=== PATIENT | female | born 1980 | race Caucasian/White ===

== ENCOUNTER 2017-10-01 20:38 | Emergency (ER) | payer SELFPAY ==
[~2017-10-01] VITALS: Ht 162.6 cm; Wt 134.3 kg
[~2017-10-01 20:38] MED LIST: ACHD5005 PO; ALBU8.5H2 PO; ALPR.5T PO; AMOX-97 PO; AMOX500C2 PO; AZIT250T12 PO; BIRTH CONTROL; CEPH500C PO; CYCL10TA9 PO; DCS100C PO; DOXY100C2 PO; DULO30CA3 PO; FERR-57 PO; FERR-84 PO; FLUO20CA25 PO; GFCD10B PO; HYDR-2856 PO; HYDR-34 PO; HYDR-3583 PO; HYDR25CA5 PO; IBP600T1 PO; IBP800T PO; KETO75CA PO; LA/L175C PO; LOSA25TA21 PO; MEDR5TAB4 PO; META800T5 PO; METF-380 PO; METF500T4 PO; METF500T8; METR500T PO; MIRTAZAPINE; NAPR-243 PO; NITR-65 PO; ONDA8TAB9 PO; ONDAN4ODT PO; PHEN200T27 PO; PRD20T PO; PREG75CA PO; PRM25T PO; PRM5C60 TOP; PROAIR; PROM25SU10 PR; SMT80CT PO; SPECTAZOLE; VISTARIL; [UNRECOGNIZED DRUG - CODE] PO; [UNRECOGNIZED DRUG - CODE] PO; yazmin
[2017-10-01] MEDS ORDERED: PROMETHAZINE/ CODEINE SYRUP 5 ML UDC PO ONE (22:00)
[2017-10-01] MEDS ORDERED: AZIT250T PO (22:05)
[2017-10-01] MEDS ORDERED: CODE118S2 PO (22:05)
--- NOTE | 2017-10-01 22:06 | ED EENT ---
History of Present Illness General Chief Complaint: Cough/Cold/Flu Symptoms Stated Complaint: FEVER,COUGH Nursing Triage Note: PT TO ED 5 W/ C/O COUGH, FEVER. PT REPORTS RECENTLY DX W/ BRONCHITIS ET LARYNGITIS. REPORTS SHE WAS FEELING BETTER BUT NOW SYMPTOMS ARE WORSE. Source: patient Exam Limitations: no limitations History of Present Illness Time seen by provider: 22:02 Initial Comments to ER with a productive cough and fever up to 101. She was diagnosed with bronchitis and laryngitis about 2 weeks ago that seemed to improve but about 3 days ago her symptoms worsened. Timing/Duration: this morning Severity: moderate Associated Symptoms: cough, nasal congestion/drainage Allergies and Home Medications Allergies Coded Allergies: Sulfa (Sulfonamide Antibiotics) (Unverified Allergy, Mild, 06/30/09) buspirone HCl (Verified Allergy, Unknown, 02/26/16) mirtazapine (Verified Allergy, Unknown, 02/26/16) naproxen (Verified Allergy, Unknown, 08/20/16) Home Medications Duloxetine HCl 30 Mg Capsule.dr, 30 MG PO DAILY, (Reported) Ferrous Sulfate 325 Mg Tablet, 325 MG PO DAILY, (Reported) Losartan Potassium 25 Mg Tablet, 25 MG PO DAILY, (Reported) Metformin HCl 500 Mg Tab.er.24h, #60 (Reported) Metformin HCl Unknown Strength Tablet, 500 MG PO BID, (Reported) Pregabalin 75 Mg Capsule, 225 MG PO BID, (Reported) Review of Systems Constitutional: see HPI, chills Eyes: No Symptoms Reported Ears: No Symptoms Reported Nose: no symptoms reported Mouth: no symptoms reported Throat: no symptoms reported Respiratory: see HPI, cough Cardiovascular: no symptoms reported Musculoskeletal: no symptoms reported Skin: no symptoms reported Neurological: No Symptoms Reported Hematologic/Lymphatic: No Symptoms Reported Past Shibkjr-Bfjfiz-Rgsdxu Hx Patient Social History Alcohol Use: Denies Use Recreational Drug Use: No Smoking Status: Current Everyday Smoker Type Used: Cigarettes Former Smoker, Quit: Aug 21, 2016 Recent Foreign Travel: No Contact w/Someone Who Travel: No Recent Infectious Disease Expo: No Recent Hopitalizations: No Physical Abuse: No Sexual Abuse: No Mistreated: No Fear: No Immunizations Up To Date Tetanus Booster (TDap): Unknown Date of Pneumonia Vaccine: May 26, 2013 Seasonal Allergies Seasonal Allergies: Yes Surgeries History of Surgeries: Yes (D&C x3) Surgeries: Hysterectomy Respiratory History of Respiratory Disorde: Yes Respiratory Disorders: Asthma Cardiovascular History of Cardiac Disorders: Yes Cardiac Disorders: Hypertension Neurological History of Neurological Disord: No Reproductive System Hx Reproductive Disorders: No Sexually Transmitted Disease: No HIV/AIDS: No Female Reproductive Disorders: Menstrual Problems, Ovarian Cyst [employer] History: Hysterectomy Genitourinary History of Genitourinary Disor: No Gastrointestinal History of Gastrointestinal Di: Yes (BLOOD IN STOOLS) Gastrointestinal Disorders: Gastroesophageal Reflux Musculoskeletal History of Musculoskeletal Dis: Yes (UNDIFFERENTIATED CONNECTIVE TISSUE DISEASE ) Musculoskeletal Disorders: Arthritis, Fibromyalgia, Rheumatoid Arthritis Endocrine History of Endocrine Disorders: Yes Endocrine Disorders: Diabetes, Non-Insulin dep HEENT Loss of Vision: Bilateral Hearing Impairment: Deaf Cancer History of Cancer: No Psychosocial History of Psychiatric Problem: Yes Behavioral Health Disorders: Anxiety, PTSD, Bipolar, Depression Suicide Risk Score: 0 Integumentary History of Skin or Integumenta: No Blood Transfusions History of Blood Disorders: No (ANEMIA) Adverse Reaction to a Blood Tr: No (HAS HAD BLOOD WITH NO REACTION) Family Medical History Family Medial History: Alcoholism 03 MOTHER Cancer 09 SISTER (Cervical or ovarian) Cancer of colon Congenital heart disease 03 FATHER Congestive heart failure 03 FATHER Family history: Allergy 03 MOTHER Family history: Arthritis Family history: Asthma 09 BROTHER Family history: Cardiovascular disease Family history: Diabetes mellitus 03 MOTHER Family history: Hypertension 03 MOTHER Family history: Thyroid disorder Heart disease History of - anemia 03 MOTHER History of drug abuse 03 FATHER 03 MOTHER Hypercholesterolemia 03 MOTHER Kidney disease Myocardial infarction Psychotic disorder Seizure disorder Stroke No Family History of: Abdominal aortic aneurysm Dyllan's disease Aphasia Cataract Chest pain Cystic fibrosis Dementia Dysphagia Family history: Alzheimer's disease Family history: Breast disease Family history: Coronary thrombosis Family history: Gastrointestinal disease Family history: Glaucoma Family history: Osteoporosis Headache Hearing loss Hereditary disease History of - respiratory disease Human immunodeficiency virus (HIV) seropositivity Infertile Malignant neoplasm of lung Parkinson's disease Prostate cancer Tuberculosis Visual impairment Physical Exam Vital Signs Vital Sign - Last 12Hours 10/01/17 21:12 Temp 98.0 Pulse 90 Resp 20 B/P (MAP) 141/93 (109) O2 Delivery Room Air General Appearance: WD/WN, no apparent distress Eyes: bilateral eye normal inspection, bilateral eye PERRL, bilateral eye EOMI Ears: bilateral ear auricle normal, bilateral ear canal normal, bilateral ear TM normal Mouth/Throat: normal mouth inspection, pharynx normal Neck: non-tender, full range of motion Cardiovascular: regular rate, rhythm, no murmur Gastrointestinal: normal bowel sounds, non tender Neurologic/Psychiatric: alert, normal mood/affect, oriented x 3 Skin: normal color, warm/dry Progress/Results/Core Measures Results/Orders Micro Results Microbiology 10/01/17 Influenza Types A,B Antigen (FLORA) - Final, Complete My Orders Orders - LIVIA NOVOA APRN Azithromycin Tablet (Zithromax Tablet) (10/02/17 09:00) Promethazine/ Codeine Syrup (Phenergan W (10/01/17 22:00) Vital Signs/I&O Vital Sign - Last 12Hours 10/01/17 21:12 Temp 98.0 Pulse 90 Resp 20 B/P (MAP) 141/93 (109) O2 Delivery Room Air Blood Pressure Mean: 109 Departure Impression Impression: Primary Impression: Upper respiratory infection Disposition: 01 HOME, SELF-CARE Condition: Stable Departure-Patient Inst. Decision time for Depature: 22:04 Referrals: NO,LOCAL PHYSICIAN (PCP/Family) Primary Care Physician Patient Instructions: Cough, Adult (DC) Add. Discharge Instructions: All discharge instructions reviewed with patient and/or family. Voiced understanding. Scripts Promethazine HCl/Codeine (Promethazine-Codeine Syrup) 118 Ml Syrup 5 ML PO Q6H Y for COUGH, #120 ML Prov: LIVIA NOVOA APRN 10/01/17 Azithromycin (Zithromax) 250 Mg Tablet 250 MG PO DAILY, #5 TAB Prov: LIVIA NOVOA APRN 10/01/17 Work/School Note: Work Release Form Date Seen in the Emergency Department: Oct 01, 2017 Return to Work: Oct 03, 2017 LIVIA NOVOA APRN Oct 01, 2017 22:05
[2017-10-01] MEDS ORDERED: AZITHROMYCIN 250 MG TAB (ZITHROMAX) PO ONE (22:12)
[2017-10-01 22:20] VITALS: BP 138/91
[2017-10-02] MEDS ORDERED: AZITHROMYCIN 250 MG TAB (ZITHROMAX) PO SCH (09:00)
== END 2017-10-01 22:20 | disposition home or self-care (01) ==
LOC: EDUNIT# 20:38 → ER 20:40
DX: J06.9 Acute upper respiratory infection, unspecified (principal); J45.909 Unspecified asthma, uncomplicated; I10 Essential (primary) hypertension; K21.9 Gastro-esophageal reflux disease without esophagitis; M06.9 Rheumatoid arthritis, unspecified; E11.9 Type 2 diabetes mellitus without complications; F41.9 Anxiety disorder, unspecified; F31.9 Bipolar disorder, unspecified; F43.10 Post-traumatic stress disorder, unspecified; F17.210 Nicotine dependence, cigarettes, uncomplicated; Z80.0 Family history of malignant neoplasm of digestive organs; Z82.49 Family history of ischemic heart disease and other diseases of the circulatory system; Z90.710 Acquired absence of both cervix and uterus
CPT/HCPCS: 87804; 99283

== ENCOUNTER 2018-03-01 18:38 | Emergency (ER) | payer SELFPAY ==
[~2018-03-01] VITALS: Ht 162.6 cm; Wt 127.0 kg
[~2018-03-01 18:38] MED LIST changes: +AZIT250T PO; +CODE118S2 PO; -METF500T4 PO; +METF500T5 PO
--- OUTSIDE RECORDS SUMMARY | 2018-03-01 18:43 | XMS REPORT | Clinical Summary ---
Author Author [facility] Organization [facility] Address Unknown Phone Unavailable Care Team Providers Care Hand Stapler Name Role Phone Wilner Mendoza MD Unavailable Wilner Mendoza MD Unavailable Sally Arellano MD Unavailable Clement Zafar MD Unavailable No Pcp, Na PCP Unavailable Source Comments Some departments are not documenting in the electronic medical record. If you do not see the information that you expected, contact Release of Information in the Health Information Management department at [phone] for further assistance in locating additional records.[facility] Allergies Active Allergy Reactions Severity Noted Date Comments Buspirone ANXIETY Low 04/05/2015 Naproxen SEE COMMENTS Low 08/06/2016 tongue and lip swelling Mirtazapine MENTAL STATUS CHANGES Medium 04/05/2015 Sulfa (Sulfonamide RASH Medium 04/05/2015 Antibiotics) Current Medications Prescription Sig. Disp. Refills Start End Date Status Date pregabalin (LYRICA) 150 Take 150 mg by mouth Active mg capsule twice daily. losartan (COZAAR) 25 mg Take 25 mg by mouth Active tablet daily. metFORMIN-XR(+) Take 500 mg by mouth Active (GLUCOPHAGE XR) 500 mg twice daily. extended release tablet duloxetine DR (CYMBALTA) Take 30 mg by mouth Active 30 mg capsule daily. indomethacin (INDOCIN) 50 Take 50 mg by mouth twice Active mg capsule daily. Take with food. hydroxychloroquine Take 1 Tab by mouth twice 180 Tab 1 12/07/19 Active (PLAQUENIL) 200 mg tablet daily. Take with food. 17 Active Problems Problem Noted Date Iron deficiency 08/06/2016 Overview: The patient isn't anemic. She is female. But she's had a hysterectomy in 2011. Connective tissue disease, undifferentiated (HCC) 08/06/2016 CHRISTOS positive 06/04/2016 Butterfly rash 06/04/2016 Contact dermatitis 06/04/2016 Obesity 06/04/2016 Drug allergy-intolerance (mirtazapine, sulfonamide antibiotics, buspirone) 06/04/2016 Diabetes (HCC) 06/04/2016 Hypertension 06/04/2016 Insomnia 06/04/2016 Microcytic normochromic anemia 06/04/2016 Asthma 06/04/2016 Social History Tobacco Use Types Packs/Day Years Used Date Current Every Day Smoker Cigarettes 1 Smokeless Tobacco: Never Used Alcohol Use Drinks/Week oz/Week Comments No Sex Assigned at Date Recorded Not on file Last Filed Vital Signs Vital Sign Reading Time Taken Blood Pressure 138/88 11/12/2016 4:48 PM [employer] Pulse 85 11/12/2016 4:48 PM [employer] Temperature 36.8 C (98.3 F) 11/12/2016 4:48 PM [employer] Respiratory Rate 16 11/12/2016 4:48 PM [employer] Oxygen Saturation - - Inhaled Oxygen - - Concentration Weight 144.1 kg (317 lb 9.6 oz) 11/12/2016 4:48 PM [employer] Height 162.6 cm (5' 4") 11/12/2016 4:48 PM [employer] Body Mass Index 54.52 11/12/2016 4:48 PM [employer] F[employer]RIC[employer] Plan of Treatment Health Maintenance Due Date Last Done Comments PHYSICAL (COMPREHENSIVE) 1989 EXAM PERTUSSIS VACCINE 1993 HIV SCREENING 1997 TETANUS VACCINE 1999 DILATED EYE EXAM 2000 FOOT EXAM 2000 HBA1C 2000 MICROALBUMIN 2000 PNEUMONIA VACCINE (DM) 2000 CERVICAL CANCER SCREENING 2012 INFLUENZA VACCINE 07/06/2018 Results Not on filefrom Last 3 Months
--- OUTSIDE RECORDS SUMMARY | 2018-03-01 18:43 | XMS REPORT ---
Author Author PERRI NOVAK [facility] [place] [employer] Address Unknown Phone Unavailable Care Team Providers Care Diabetes Territory Manager Name Role Phone PERRI NOVAK CP Unavailable Allergies, Adverse Reactions, Alerts Substance Reaction Event Type Sulfamethoxazole-Trimethoprim rash Drug Allergy Remeron Info Not Available Drug Allergy Naproxen swelling Drug Allergy Enalapril Maleate Info Not Available Drug Allergy Dicyclomine HCl Info Not Available Drug Allergy BuSpar Info Not Available Drug Allergy Problems Problem Type Condition Code Onset Dates Condition Status Problem Anemia D64.9 Active Problem Iron deficiency anemia, unspecified iron deficiency anemia type D50.9 Active Problem Elevated liver enzymes R74.8 Active Problem Acute non-recurrent maxillary sinusitis J01.00 Active Problem Fibromyalgia M79.7 Active Problem Recurrent acute serous otitis media of left ear H65.05 Active Problem Morbid obesity due to excess calories E66.01 Active Problem Mild intermittent asthma without complication J45.20 Active Problem Bronchitis J40 Active Problem Type 2 diabetes mellitus without complication, without long-term current use of insulin E11.9 Active Assessment Recurrent acute serous otitis media of left ear H65.05 Active Problem Positive CHRISTOS (antinuclear antibody) R76.8 Active Assessment Fibromyalgia M79.7 Active Problem Essential hypertension I10 Active Assessment Acute non-recurrent maxillary sinusitis J01.00 Active Problem History of hysterectomy Z90.710 Active Medications Medication Code System Code Instructions Start Date End Date Status Dosage Lyrica [facility] [address]-78 50 MG Orally Two Times a day Jul 09, 2016 1 capsule Augmentin [facility] [address]-01 875-125 MG Orally every 12 hrs Jul 09, 2016 Jul 19, 2016 1 tablet Procedures Procedure Coding System Code Date THER/PROPH/DIAG INJ, SC/IM CPT-4 13388 Jul 09, 2016 Office Visit, Est Pt., Level 4 CPT-4 38410 Jul 09, 2016 ROCEPHIN 1 GM (IM) CPT-4 J0696 Jul 09, 2016 Vital Signs Date/Time: Jul 09, 2016 Cardiac Monitoring Heart Rate 72 bpm Weight 310 lbs Height 65 in BMI 51.58 Index Blood Pressure Diastolic 98 mmHg Blood Pressure Systolic 132 mmHg Results No Known Results Summary Purpose [employer]Clinical[employer] Submission
--- OUTSIDE RECORDS SUMMARY | 2018-03-01 18:43 | XMS REPORT ---
Author Author PERRI NOVAK [facility] Address [address] [place] [address] Care Team Providers Care Submarine Advisory Team Watch Officer Name Role Phone PERRI NOVAK Unavailable PROBLEMS Type Condition ICD9-CM Code [id number] Code Onset Dates Condition Status SNOMED Code Problem Acute non-recurrent maxillary sinusitis J01.00 Active 30416190 Problem Hearing loss, bilateral H91.93 Active 81120711 Problem Recurrent acute serous otitis media of left ear H65.05 Active 234906618 Problem MCTD (mixed connective tissue disease) M35.1 Active 939325554 Problem Positive CHRISTOS (antinuclear antibody) R76.8 Active 035427925 Problem Anhedonia R45.84 Active 71032169 Problem Hearing loss of left ear, unspecified hearing loss type H91.92 Active 76514173 Problem Observed sleep apnea G47.30 Active 01115046 Problem Mixed hyperlipidemia E78.2 Active 795295057 Problem Mixed connective tissue disease M35.1 Active 832226860 Problem Bilateral hearing loss, unspecified hearing loss type H91.93 Active 98387033 Problem Anemia D64.9 Active 256972040 Problem Elevated liver enzymes R74.8 Active 591813245 Problem Essential hypertension I10 Active 06656995 Problem History of hysterectomy Z90.710 Active 821555765 Problem Morbid obesity due to excess calories E66.01 Active 768091176 Problem Type 2 diabetes mellitus without complication, without long-term current use of insulin E11.9 Active 438660641 Problem Iron deficiency anemia, unspecified iron deficiency anemia type D50.9 Active 66541970 Problem Bronchitis J40 Active 45930129 Problem Mild intermittent asthma without complication J45.20 Active 139185834 Problem Fibromyalgia M79.7 Active 363640701 ALLERGIES Substance Reaction Event Type Date Status Sulfamethoxazole-Trimethoprim rash Drug Allergy Sep, Active Remeron Unknown Drug Allergy Sep, Active Naproxen swelling Drug Allergy Sep, Active Enalapril Maleate Unknown Drug Allergy Sep, Active Dicyclomine HCl Unknown Drug Allergy Sep, Active BuSpar Unknown Drug Allergy Sep, Active SOCIAL HISTORY No smoking Hx information available PLAN OF CARE Activity Details Follow Up 4 weeks Reason:Diabetes/fibro/knee pain VITAL SIGNS Height 65 in 2016-09-25 Weight 305 lbs 2016-09-25 Temperature 98.4 degrees Fahrenheit 2016-09-25 Heart Rate 80 bpm 2016-09-25 Respiratory Rate 20 2016-09-25 BMI 50.75 kg/m2 2016-09-25 Blood pressure systolic 110 mmHg 2016-09-25 Blood pressure diastolic 70 mmHg 2016-09-25 MEDICATIONS Medication Instructions Dosage Frequency Start Date End Date Duration Status Lovastatin 10 mg Orally Once a day 1 tablet with a meal 24h Sep, 90 days Active Lyrica 75 MG Orally Two Times a day 2 capsule 12h Active Indomethacin 25 MG Orally Twice a day 2 capsule with food or milk 12h Sep, Dec, 90 days Active MetFORMIN HCl ER 500 MG Orally 2 times a day 1 tablet 12h Active Losartan Potassium 25 MG Orally Once a day 1/2 tablet 24h Active Cymbalta 30 MG Orally Once a day 1 capsule 24h Active RESULTS No Results PROCEDURES Procedure Date Ordered Related Diagnosis Body Site Office Visit, Est Pt., Level 4 Sep 25, 2016 IMMUNIZATIONS No Known Immunizations
--- OUTSIDE RECORDS SUMMARY | 2018-03-01 18:43 | XMS REPORT ---
Author Author PERRI NOVAK Organization [employer] Address Unknown Phone Unavailable Care Team Providers Care Poker Supervisor Name Role Phone PERRI NOVAK CP Unavailable Allergies No Known Allergies Problems Problem Type Condition Code Onset Dates Condition Status Problem Elevated liver enzymes R74.8 Active Problem Mild intermittent asthma without complication J45.20 Active Problem Iron deficiency anemia, unspecified iron deficiency anemia type D50.9 Active Problem Recurrent acute serous otitis media of left ear H65.05 Active Problem Acute non-recurrent maxillary sinusitis J01.00 Active Problem Hearing loss, bilateral H91.93 Active Problem Type 2 diabetes mellitus without complication, without long-term current use of insulin E11.9 Active Problem Morbid obesity due to excess calories E66.01 Active Problem Fibromyalgia M79.7 Active Problem Bronchitis J40 Active Problem Positive CHRISTOS (antinuclear antibody) R76.8 Active Problem Essential hypertension I10 Active Problem History of hysterectomy Z90.710 Active Problem Anemia D64.9 Active Medications No Known Medications Results No Known Results Summary Purpose [employer]Clinical[employer] Submission
--- OUTSIDE RECORDS SUMMARY | 2018-03-01 18:44 | XMS REPORT ---
Author Author TONI HERNANDES Organization [facility] Address [address] [place] [address] Care Team Providers Care Gang Mower Operator Name Role Phone GRETA TONI Unavailable PROBLEMS Type Condition ICD9-CM Code TIT83-HL Code Onset Dates Condition Status SNOMED Code Problem Recurrent acute serous otitis media of left ear H65.05 Active 342468681 Problem Hearing loss, bilateral H91.93 Active 15711523 Problem Acute non-recurrent maxillary sinusitis J01.00 Active 78379787 Problem Anhedonia R45.84 Active 98823281 Problem Essential hypertension I10 Active 24741709 Problem MCTD (mixed connective tissue disease) M35.1 Active 932275376 Problem Hearing loss of left ear, unspecified hearing loss type H91.92 Active 53291635 Problem Observed sleep apnea G47.30 Active 40596404 Problem Mixed hyperlipidemia E78.2 Active 837004763 Problem Mixed connective tissue disease M35.1 Active 973318376 Problem Bilateral hearing loss, unspecified hearing loss type H91.93 Active 92464378 Problem Elevated liver enzymes R74.8 Active 915435790 Problem Anemia D64.9 Active 280495510 Problem Positive CHRISTOS (antinuclear antibody) R76.8 Active 492860610 Problem History of hysterectomy Z90.710 Active 804114213 Problem Mild intermittent asthma without complication J45.20 Active 957139260 Problem Morbid obesity due to excess calories E66.01 Active 632944476 Problem Iron deficiency anemia, unspecified iron deficiency anemia type D50.9 Active 41856909 Problem Bronchitis J40 Active 68582588 Problem Type 2 diabetes mellitus without complication, without long-term current use of insulin E11.9 Active 204434154 Problem Fibromyalgia M79.7 Active 578785329 ALLERGIES Substance Reaction Event Type Date Status Sulfamethoxazole-Trimethoprim rash Drug Allergy Mar, Active Remeron Unknown Drug Allergy Mar, Active Naproxen swelling Drug Allergy Mar, Active Enalapril Maleate Unknown Drug Allergy Mar, Active Dicyclomine HCl Unknown Drug Allergy Mar, Active BuSpar Unknown Drug Allergy Mar, Active ENCOUNTERS Encounter Location Date Diagnosis [place] [id number] [place] [address] 99216- 3129 Apr, Muscle spasm M62.838 [place] [address] 35454- 6612 Mar, Fibromyalgia M79.7 ; MCTD (mixed connective tissue disease) M35.1 and Anhedonia R45.84 [place] [address] 87924- 1815 Mar, [place] [address] 36718- 1018 February, Mixed connective tissue disease M35.1 and Fibromyalgia M79.[address] 33285- 3479 February, [place] [id number] [place] [address] 32407- 0159 Jan, Fibromyalgia M79.7 ; Essential hypertension I10 ; Iron deficiency anemia, unspecified iron deficiency anemia type D50.9 ; Type 2 diabetes mellitus without complication, without long-term current use of insulin E11.9 ; Mixed hyperlipidemia E78.2 ; Observed sleep apnea G47.30 and Bilateral hearing loss, unspecified hearing loss type H91.93 [place] [id number] [place] [address] 86211- 8306 Jan, [place] [id number] [place] [address] 04119- 6579 Dec, [place] [id number] [place] [address] 14671- 7935 Dec, Fibromyalgia M79.7 [place] [id number] [place] [address] 06679- 9551 Dec, Fibromyalgia M79.7 ; Essential hypertension I10 ; Iron deficiency anemia, unspecified iron deficiency anemia type D50.9 ; Type 2 diabetes mellitus without complication, without long-term current use of insulin E11.9 ; Mixed hyperlipidemia E78.2 ; Observed sleep apnea G47.30 and High risk bisexual behavior Z72.53 [place] [id number] [place] [address] 76109- 1124 Dec, [place] [id number] [place] [address] 26099- 5542 Dec, Fibromyalgia M79.7 [place] [id number] [place] [address] 34946- 6707 Dec, [place] [id number] [place] [address] 74366- 0220 Nov, [place] [id number] [place] [address] 26034- 9232 Nov, [place] [address] 04188- 8064 Nov, Acute non-recurrent frontal sinusitis J01.10 and Observed sleep apnea G47.30 [place] [id number] [place] [address] 65995- 4095 Nov, [place] [id number] [place] [address] 49455- 7507 Oct, [place] [id number] [place] [address] 86582- 3562 Oct, [place] [id number] [place] [address] 30536- 4372 Oct, [place] [id number] [place] [address] 24568- 3970 Sep, [place] [id number] [place] [address] 14445- 1448 Sep, Fibromyalgia M79.7 ; Essential hypertension I10 ; Iron deficiency anemia, unspecified iron deficiency anemia type D50.9 ; Type 2 diabetes mellitus without complication, without long-term current use of insulin E11.9 ; Hearing loss, bilateral H91.93 ; Acute pain of left knee M25.562 and Mixed hyperlipidemia E78.2 [place] [id number] [place] [address] 22884- 1552 15 Sep, 2016 [place] [id number] [place] [address] 41037- 1703 13 Sep, 2016 [place] [address] 45671- 2248 Sep, [place] [id number] [place] [address] 78428- 1933 Sep, [place] [address] 91653- 9360 Aug, [place] [id number] [place] [address] 17495- 7726 Aug, [place] [id number] [place] [address] 71452- 3910 Aug, Fibromyalgia M79.7 ; Essential hypertension I10 ; Iron deficiency anemia, unspecified iron deficiency anemia type D50.9 ; Type 2 diabetes mellitus without complication, without long-term current use of insulin E11.9 and Hearing loss, bilateral H91.93 [place] [id number] [place] [address] 38911- 7426 16 Aug, 2016 [place] [id number] [place] [address] 26769- 1554 15 Aug, 2016 Bronchitis J40 [place] [id number] [place] [address] 28845- 5380 14 Aug, 2016 [place] [id number] [place] [address] 48104- 9384 11 Aug, 2016 [place] [id number] [place] [address] 21167- 0910 Aug, Anemia D64.9 [place] [id number] [place] [address] 32388- 7132 Aug, Anemia D64.[address] 52864- 5946 Aug, [address] 93290- 7687 Aug, Anemia D64.[address] 04272- 4120 Aug, Elevated liver enzymes R74.[address] 52035- 4671 Jul, Fibromyalgia M79.7 ; Type 2 diabetes mellitus without complication, without long-term current use of insulin E11.9 and Essential hypertension I10 [address] 14512- 9312 Jul, [address] 78024- 7642 Jul, Recurrent acute serous otitis media of left ear H65.05 ; Acute non-recurrent maxillary sinusitis J01.00 and Fibromyalgia M79.[address] 11034- 6251 May, Positive CHRISTOS (antinuclear antibody) R76.[address] 85095- 1030 May, Bronchitis J40 [address] 34492- 5918 Mar, Bronchitis J40 ; Type 2 diabetes mellitus without complication, without long-term current use of insulin E11.9 ; Morbid obesity due to excess calories E66.01 ; Mild intermittent asthma without complication J45.20 ; Iron deficiency anemia, unspecified iron deficiency anemia type D50.9 and Essential hypertension I10 [address] 38623- 6619 February, [address] 26975- 3526 February, [place] [id number] [place] [address] 05379- 5253 Jan, [place] [id number] [place] [address] 81141- 5888 Jan, [place] [id number] [place] [address] 78895- 6726 Dec, Essential hypertension I10 and Myalgia M79.1 [place] [id number] [place] [address] 19870- 9837 Dec, [place] [address] 40836- 5546 Dec, [place] [id number] [place] [address] 68109- 2410 Dec, [place] [address] 50471- 9696 Dec, Essential hypertension I10 ; Elevated liver enzymes R74.8 ; Morbid obesity with BMI of 50.0-59.9, adult Z68.43 ; Pre-diabetes R73.09 and Anemia D64.9 [place] [id number] [place] [address] 04188- 9503 09 Nov, 2015 Routine screening for STI (sexually transmitted infection) Z11.3 ; Unprotected sexual intercourse Z72.51 and History of hysterectomy Z90.710 [place] [id number] [place] [address] 03389- 1634 Oct, [place] [id number] [place] [address] 41180- 5002 Oct, Gastroenteritis 558.9 and Left wrist pain 719.43 [place] [id number] [place] [address] 60786- 2404 Oct, Upper respiratory tract infection, unspecified type J06.9 [place] [id number] [place] [address] 07361- 9446 Oct, [facility] [id number] [place] [address] 29432- 1756 Oct, Upper respiratory tract infection, unspecified type 465.9 ; Cutaneous abscess of neck L02.11 and Nausea R11.0 [facility] [id number] [place] [address] 87846- 3612 Sep, [facility] [address] 79787- 1454 Sep, Nausea R11.0 ; Essential hypertension I10 and Positive CHRISTOS ( antinuclear antibody) R76.8 [place] [address] 61424- 3039 Jul, [facility] [address] 68976- 5673 Jul, URI (upper respiratory infection) J06.9 ; Pertussis exposure Z20.89 and Essential hypertension I10 [facility] [id number] [place] [address] 02427- 2600 Jan, [facility] [address] 82228- 4487 Jan, [facility] [id number] [place] [address] 32947- 2676 Dec, [facility] [id number] [place] [address] 95603- 1964 Dec, [facility] [id number] [place] [address] 37941- 2320 Nov, [facility] [id number] [place] [address] 76485- 5931 Nov, [facility] [id number] [place] [address] 80978- 4207 Nov, [facility] [id number] [place] [address] 51185- 1007 Nov, [facility] [place] [facility] [address] [id number] [place] [address]- 1939 Nov, [facility] [place] [facility] [address] [id number] [place] [address]- 2427 Nov, [facility] [place] [facility] [address] [id number] [place] [address]- 1988 Nov, [facility] [place] [facility] [address] [id number] [place] [address]- 5049 Nov, [facility] [place] [facility] [address] [id number] [place] [address]- 7344 Oct, [facility] [place] [facility] [address] [id number] [place] [address]- 8796 Oct, [facility] [place] [facility] [address] [id number] [place] [address]- 2065 Oct, [facility] [place] [facility] [address] [id number] [place] [address]- 5051 Oct, [facility] [place] [facility] [address] [id number] [place] [address]- 3998 Oct, [facility] [place] [facility] [address] [id number] [place] [address]- 8337 Oct, [facility] [place] [facility] [address] [id number] [place] [address]- 7794 Oct, [facility] [place] [facility] [address] [id number] [place] [address]- 0890 Oct, [facility] [place] [facility] [address] [id number] [place] [address]- 9188 Oct, [facility] [place] [facility] [address] [id number] [place] [address]- 9656 Sep, [facility] [place] [facility] [address] [id number] [place] [address]- 5389 Sep, [facility] [place] [facility] [address] [id number] [place] [address]- 3522 Sep, [facility] [place] [facility] [address] [id number] [place] [address]- 9883 Sep, [facility] [place] [facility] [address] [id number] [place] [address]- 8066 Sep, [facility] [place] [facility] [address] [id number] [place] [address]- 0980 Sep, [facility] [place] [facility] [address] [id number] [place] [address]- 3120 Sep, [facility] [place] [facility] [address] [id number] [place] [address]- 4635 Sep, [facility] [place] [facility] [address] [id number] [place] [address]- 0951 Sep, [facility] [place] [facility] [address] [id number] [place] [address]- 5599 Sep, [facility] [place] [facility] [address] [id number] [place] [address]- 6491 Sep, [facility] [place] [facility] [address] [id number] [place] [address]- 7014 Sep, [facility] [place] [facility] [address] [id number] [place] [address]- 8758 Jun, [facility] [place] [facility] [address] [id number] [place] [address]- 2109 Jun, [facility] [place] [facility] [address] [id number] [place] [address]- 3826 15 Jun, 2014 [facility] [place] [facility] [address] [id number] [place] [address]- 8312 15 Jun, 2014 [facility] [place] [facility] [address] [id number] [place] [address]- 0370 12 Jun, 2014 [facility] [place] [facility] [address] [id number] [place] [address]- 0375 12 Jun, 2014 [facility] [place] [facility] [address] [id number] [place] [address]- 2725 05 Jun, 2013 [facility] [place] [facility] [address] [id number] [place] [address]- 1223 Jun, 2013 [facility] [place] [facility] [address] [id number] [place] [address]- 6856 Jun, 2013 [facility] [place] [facility] [address] [id number] [place] [address]- 6071 Jun, 2013 [facility] [place] [facility] [address] [id number] [place] [address]- 0583 Jun, 2013 [facility] [place] [facility] [address] [id number] [place] [address]- 7337 Jun, [facility] [place] [facility] [address] [id number] [place] [address]- 5946 May, [facility] [place] [facility] [address] [id number] [place] [address]- 1263 May, [facility] [address] [id number] [place] [address]- 0253 Apr, [facility] [place] [facility] [address] [id number] [place] [address]- 1712 Apr, [facility] [place] [facility] [address] [id number] [place] [address]- 1357 February, [facility] [place] [facility] [address] [id number] [place] [address]- 1446 February, [facility] [place] [facility] [address] [id number] [place] [address]- 1657 February, [facility] [place] [facility] [address] [id number] [place] [address]- 8158 February, [facility] [place] [facility] [address] [id number] [place] [address]- 5999 February, [facility] [place] [facility] [address] [id number] [place] [address]- 7272 February, [facility] [place] [facility] [address] [id number] [place] [address]- 8143 Oct, [facility] [place] [facility] [address] [id number] [place] [address]- 2188 Oct, [facility] [place] [facility] [address] [id number] [place] [address]- 0717 Aug, [facility] [place] [facility] [address] [id number] [place] [address]- 6780 Aug, [facility] [place] [facility] [address] [id number] [place] [address]- 0236 Aug, [facility] [place] [facility] [address] [id number] [place] [address]- 8257 Aug, [facility] [place] [facility] [address] [id number] [place] [address]- 2795 Aug, [facility] [place] [facility] [address] [id number] [place] [address]- 4288 Aug, [facility] [place] [facility] [address] [id number] [place] [address]- 5705 Aug, [facility] [place] [facility] [address] [id number] [place] [address]- 5148 May, [facility] [place] [facility] [address] [id number] [place] [address]- 6706 May, [facility] [place] [facility] [address] [id number] [place] [address]- 2975 May, [facility] [place] [facility] [address] [id number] [place] [address]- 1095 May, [facility] [place] [facility] [address] [id number] [place] [address]- 4599 May, [facility] [place] [facility] [address] [id number] [place] [address]- 5203 Apr, [facility] [place] [facility] [address] [id number] [place] [address]- 1523 Apr, [facility] [address] [id number] [place] [address]- 1820 Apr, [facility] [address] [id number] [place] [address]- 6505 Apr, [facility] [address] [id number] [place] [address]- 4524 Apr, [facility] [address] [id number] [place] [address]- 3784 Apr, [facility] [address] [id number] [place] [address]- 3156 Mar, [facility] [address] [id number] [place] [address]- 4991 Mar, [facility] [address] [id number] [place] [address]- 5919 February, [facility] [address] [id number] [place] [address]- 1063 February, [facility] [address] [id number] [place] [address]- 3488 Jan, [facility] [address] [id number] [place] [address]- 4650 Dec, [facility] [address] [id number] [place] [address]- 9952 Dec, [facility] [place] [facility] [address] [id number] [place] [address]- 4039 Dec, [facility] [place] [facility] [address] [id number] [place] [address]- 1506 Dec, [facility] [place] [facility] [address] [id number] [place] [address]- 1937 05 Dec, 2012 [facility] [address] [id number] [place] [address]- 0993 Nov, [facility] [address] [id number] [place] [address]- 8227 Nov, [facility] [place] [facility] [address] [id number] [place] [address]- 9826 Nov, [facility] [place] [facility] [address] [id number] [place] [address] 254 Nov, [facility] [place] [facility] [address] [id number] [place] [address] 2546 Nov, [facility] [place] [facility] [address] [id number] [place] [address]- 8576 Nov, [facility] [place] [facility] [address] [id number] [place] [address]- 1255 Nov, [facility] [place] [facility] [address] [id number] [place] [address]- 5364 Oct, [facility] [place] [facility] [address] [id number] [place] [address]- 1724 Oct, [facility] [place] [facility] [address] [id number] [place] [address]- 0827 Oct, [facility] [place] [facility] [address] [id number] [place] [address]- 7101 Oct, [facility] [place] [facility] [address] [id number] [place] [address]- 8948 Oct, [facility] [place] [facility] [address] [id number] [place] [address]- 9576 Oct, [facility] [place] [facility] [address] [id number] [place] [address]- 6065 Oct, [facility] [place] [facility] [address] [id number] [place] [address]- 9140 Oct, [facility] [place] [facility] [address] [id number] [place] [address]- 2089 Oct, [facility] [place] [facility] [address] [id number] [place] [address]- 1772 17 Oct, 2012 [facility] [place] [facility] [address] [id number] [place] [address]- 9266 Sep, [facility] [place] [facility] [address] [id number] [place] [address]- 6226 Sep, [facility] [place] [facility] [id number] [place] [address]- 0356 Sep, [facility] [place] [facility] [address] [id number] [place] [address]- 0398 Sep, [facility] [place] [facility] [address] [facility] [id number] [place] [address]- 8165 Sep, [facility] [place] [facility] [address] [facility] [id number] [place] [address]- 2756 Sep, [facility] [place] [facility] [id number] [place] [address]- 7348 04 Sep, 2012 [facility] [place] [facility] [address] [id number] [place] [address] 29 Aug, 2012 [facility] [place] [facility] [address] [id number] [place] [address] 28 Aug, 2012 [facility] [place] [facility] [address] [id number] [place] [address] 28 Aug, 2012 [facility] [place] [facility] [id number] [place] [address] 16 Aug, 2012 [facility] [place] [facility] [address] [facility] [id number] [place] [address] 16 Aug, 2012 [facility] [place] [facility] [address] [id number] [place] [address] 13 Aug, 2012 [facility] [place] [facility] [address] [facility] [id number] [place] [address]17 13 Aug, 2012 [facility] [place] [facility] [address] [id number] [place] [address] 11 Jul, 2012 [facility] [place] [facility] [address] [id number] [place] [address] 11 Jul, 2012 [facility] [place] [facility] [address] [id number] [place] [address]- [address]498 10 Jul, 2012 [facility] [place] [facility] [address] [id number] [place] [address] 2786 10 Jul, 2012 [facility] [place] [facility] [address] [id number] [place] [address]- 1602 20 Jun, 2012 [facility] [place] [facility] [address] [id number] [place] [address]- 5232 04 Jun, 2012 [facility] [place] [facility] [address] [id number] [place] [address] May, [facility] [place] [facility] [address] [id number] [place] [address] Apr, [facility] [place] [facility] [address] [id number] [place] [address] Mar, [facility] [place] [facility] [address] [id number] [place] [address] Mar, [facility] [place] [facility] [address] [id number] [place] [address] Mar, [facility] [place] [facility] [address] [id number] [place] [address] 53[address] Mar, [facility] [place] [facility] [address] [id number] [place] [address] February, [facility] [place] [facility] [address] [id number] [place] [address] February, [facility] [place] [facility] [address] [id number] [place] [address] Jan, [facility] [place] [facility] [address] [id number] [place] [address] 9686 Sep, [facility] [place] [facility] [address] [id number] [place] [address] 8469 28 Jul, 2011 [facility] [address] [id number] [place] [address] 13 Apr, 2011 [facility] [place] [facility] [address] [id number] [place] [address]- 7846 13 Jan, 2011 [facility] [place] [facility] [address] [id number] [place] [address]- 9766 18 Dec, 2010 [facility] [place] [facility] [address] [id number] [place] [address]- [address]015 16 Dec, 2010 [facility] [address] [id number] [place] [address] 3833 14 Dec, 2010 [facility] [place] [facility] [address] [id number] [place] [address] 6316 31 Sep, 2010 [facility] [place] [facility] [address] [id number] [place] [address] 8696 29 Sep, 2010 [facility] [place] [facility] [address] [id number] [place] [address] 2838 29 Sep, 2010 [facility] [place] [facility] [address] [id number] [place] [address] 2607 28 Sep, 2010 [facility] [place] [facility] [address] [id number] [place] [address] 6793 26 Sep, 2010 [facility] [place] [facility] [address] [id number] [place] [address]- [address]176 23 Sep, 2010 [facility] [place] [facility] [address] [address] [id number] [place] [address] 22 Sep, 2010 [facility] [place] [facility] [address] [id number] [place] [address] 254 Sep, [facility] [place] [facility] [address] [id number] [place] [address] 16 Aug, 2010 [facility] [place] [facility] [address] [id number] [place] [address] 02 Aug, 2010 [facility] [place] [facility] [address] [facility] [id number] [place] [address] Apr, [facility] [address] [facility] [id number] [place] [address] Dec, [facility] [address] [id number] [place] [address] Sep, [facility] [address] [facility] [id number] [place] [address] Aug, [facility] [address] [id number] [place] [address] Jul, [facility] [address] [id number] [place] [address] Jul, [facility] [address] [id number] [address] Jul, IMMUNIZATIONS No Known Immunizations SOCIAL HISTORY Never Assessed REASON FOR VISIT Fibromyalgia- BETHANIE Zuniga, Patient has started smoking cigarettes, Patient states fibromyalgia pain has increased and is effecting her ADL's PLAN OF CARE Activity Details Follow Up 3 Months Reason: VITAL SIGNS Height 65 in 2017-04-03 Weight 311.3 lbs 2017-04-03 Temperature 97.4 degrees Fahrenheit 2017-04-03 Heart Rate 80 bpm 2017-04-03 Respiratory Rate 16 2017-04-03 BMI 51.80 kg/m2 2017-04-03 Blood pressure systolic 124 mmHg 2017-04-03 Blood pressure diastolic 82 mmHg 2017-04-03 MEDICATIONS Medication Instructions Dosage Frequency Start Date End Date Duration Status Blood Glucose Monitor System glucometer test blood sugar Dec, Active Celebrex 100 mg Orally twice a day 1 capsule with food 12h Mar, 90 days Active Plaquenil 200 mg Orally twice a day 1 tablet with food or milk 12h February, May, 90 days Active RESULTS No Results PROCEDURES No Known procedures INSTRUCTIONS MEDICATIONS ADMINISTERED No Known Medications MEDICAL (GENERAL) HISTORY Type Description Date Medical History hypertension Medical History asthma Medical History pre-diabetes Medical History anemia Medical History Post CHRISTOS Ref to Rheum [facility] 2-15 keeps rescheduling Medical History Plantar fascial fibromatosis Medical History Obesity, unspecified Surgical History partial hysterectomy Surgical History dilatation and curettage Surgical History Colonoscopy Walker Normal
--- OUTSIDE RECORDS SUMMARY | 2018-03-01 18:44 | XMS REPORT ---
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 Name Role Phone PERRI NOVAK Unavailable PROBLEMS Type Condition ICD9-CM Code [id number] Code Onset Dates Condition Status SNOMED Code Problem Iron deficiency anemia, unspecified iron deficiency anemia type D50.9 Active 28143352 Problem Morbid obesity due to excess calories E66.01 Active 707858490 Problem Mild intermittent asthma without complication J45.20 Active 800941259 Problem Hearing loss, bilateral H91.93 Active 97767212 Problem Recurrent acute serous otitis media of left ear H65.05 Active 817184448 Problem Bronchitis J40 Active 41313986 Problem Type 2 diabetes mellitus without complication, without long-term current use of insulin E11.9 Active 813618277 Problem Acute non-recurrent maxillary sinusitis J01.00 Active 79355769 Problem Fibromyalgia M79.7 Active 882861714 Problem Essential hypertension I10 Active 41093160 Problem History of hysterectomy Z90.710 Active 793534884 Problem Anemia D64.9 Active 657901610 Problem Positive CHRISTOS (antinuclear antibody) R76.8 Active 743726597 Problem Elevated liver enzymes R74.8 Active 110581207 ALLERGIES Unknown Allergies SOCIAL HISTORY No smoking Hx information available PLAN OF CARE VITAL SIGNS MEDICATIONS Unknown Medications RESULTS No Results PROCEDURES No Known procedures IMMUNIZATIONS No Known Immunizations
--- OUTSIDE RECORDS SUMMARY | 2018-03-01 18:44 | XMS REPORT ---
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
--- OUTSIDE RECORDS SUMMARY | 2018-03-01 18:44 | XMS REPORT ---
Author Author PERRI NOVAK [facility] Address [address] [place] [address] Care Team Providers Care Vice President Network Name Role Phone PERRI NOVAK Unavailable PROBLEMS Type Condition ICD9-CM Code [id number] Code Onset Dates Condition Status SNOMED Code Problem Recurrent acute serous otitis media of left ear H65.05 Active 695954853 Problem Hearing loss, bilateral H91.93 Active 99083604 Problem Acute non-recurrent maxillary sinusitis J01.00 Active 24552409 Problem Anhedonia R45.84 Active 98542749 Problem Essential hypertension I10 Active 69858102 Problem MCTD (mixed connective tissue disease) M35.1 Active 968379067 Problem Hearing loss of left ear, unspecified hearing loss type H91.92 Active 97150840 Problem Observed sleep apnea G47.30 Active 78232584 Problem Mixed hyperlipidemia E78.2 Active 082543936 Problem Mixed connective tissue disease M35.1 Active 754548144 Problem Bilateral hearing loss, unspecified hearing loss type H91.93 Active 41044850 Problem Elevated liver enzymes R74.8 Active 306703627 Problem Anemia D64.9 Active 285640682 Problem Positive CHRISTOS (antinuclear antibody) R76.8 Active 082050452 Problem History of hysterectomy Z90.710 Active 059123815 Problem Mild intermittent asthma without complication J45.20 Active 758593418 Problem Morbid obesity due to excess calories E66.01 Active 215123525 Problem Iron deficiency anemia, unspecified iron deficiency anemia type D50.9 Active 82329910 Problem Bronchitis J40 Active 01319379 Problem Type 2 diabetes mellitus without complication, without long-term current use of insulin E11.9 Active 412941669 Problem Fibromyalgia M79.7 Active 440367644 ALLERGIES No Information SOCIAL HISTORY Never Assessed PLAN OF CARE VITAL SIGNS MEDICATIONS Medication Instructions Dosage Frequency Start Date End Date Duration Status Lyrica 75 MG Orally 3 times a day 2 Capsules 8h Dec, 90 days Active RESULTS No Results PROCEDURES No Known procedures IMMUNIZATIONS No Known Immunizations MEDICAL (GENERAL) HISTORY Type Description Date Medical History hypertension Medical History asthma Medical History pre-diabetes Medical History anemia Medical History Post CHRISTOS Ref to Rheum [facility] 2-15 keeps rescheduling Medical History Plantar fascial fibromatosis Medical History Obesity, unspecified Surgical History partial hysterectomy Surgical History dilatation and curettage Surgical History Colonoscopy Aaron Johnson
--- OUTSIDE RECORDS SUMMARY | 2018-03-01 18:44 | XMS REPORT ---
Author Author PERRI NOVAK Organization [facility] Address [address] [place] [address] Care Team Providers Care Clipper Automatic Name Role Phone PERRI NOVAK Unavailable PROBLEMS Type Condition ICD9-CM Code [id number] Code Onset Dates Condition Status SNOMED Code Problem Acute non-recurrent maxillary sinusitis J01.00 Active 61172428 Problem Hearing loss, bilateral H91.93 Active 33517608 Problem Recurrent acute serous otitis media of left ear H65.05 Active 705521132 Problem MCTD (mixed connective tissue disease) M35.1 Active 264329912 Problem Positive CHRISTOS (antinuclear antibody) R76.8 Active 337018238 Problem Anhedonia R45.84 Active 42574869 Problem Hearing loss of left ear, unspecified hearing loss type H91.92 Active 11513511 Problem Observed sleep apnea G47.30 Active 78549013 Problem Mixed hyperlipidemia E78.2 Active 868700311 Problem Mixed connective tissue disease M35.1 Active 693285384 Problem Bilateral hearing loss, unspecified hearing loss type H91.93 Active 97653770 Problem Anemia D64.9 Active 829782400 Problem Elevated liver enzymes R74.8 Active 966834568 Problem Essential hypertension I10 Active 67100262 Problem History of hysterectomy Z90.710 Active 187395547 Problem Morbid obesity due to excess calories E66.01 Active 022414060 Problem Type 2 diabetes mellitus without complication, without long-term current use of insulin E11.9 Active 153588147 Problem Iron deficiency anemia, unspecified iron deficiency anemia type D50.9 Active 00287809 Problem Bronchitis J40 Active 18835202 Problem Mild intermittent asthma without complication J45.20 Active 055512284 Problem Fibromyalgia M79.7 Active 338781860 ALLERGIES No Known Allergies SOCIAL HISTORY No smoking Hx information available PLAN OF CARE VITAL SIGNS MEDICATIONS No Known Medications RESULTS No Results PROCEDURES No Known procedures IMMUNIZATIONS No Known Immunizations
--- OUTSIDE RECORDS SUMMARY | 2018-03-01 18:44 | XMS REPORT ---
Author PERRI Escobar Organization [employer] Address Unknown Phone Unavailable Care Team Providers Care Community Development Director Name Role Phone PERRI NOVAK CP Unavailable Allergies No Known Allergies Problems Problem Type Condition Code Onset Dates Condition Status Problem Essential hypertension I10 Active Problem Positive CHRISTOS (antinuclear antibody) R76.8 Active Problem Nausea R11.0 Active Medications No Known Medications Results No Known Results Summary Purpose [employer] Submission
--- OUTSIDE RECORDS SUMMARY | 2018-03-01 18:44 | XMS REPORT ---
Author Author PERRI NOVAK [facility] [employer] Address Unknown Phone Unavailable Care Team Providers Care Geoscience Laboratory Technician Name Role Phone PERRI NOVAK CP Unavailable Allergies No Known Allergies Problems Problem Type Condition Code Onset Dates Condition Status Problem Essential hypertension I10 Active Problem Anemia D64.9 Active Problem History of hysterectomy Z90.710 Active Assessment Positive CHRISTOS (antinuclear antibody) R76.8 Active Problem Positive CHRISTOS (antinuclear antibody) R76.8 Active Problem Type 2 diabetes mellitus without complication, without long-term current use of insulin E11.9 Active Problem Morbid obesity due to excess calories E66.01 Active Problem Bronchitis J40 Active Problem Elevated liver enzymes R74.8 Active Problem Morbid obesity with BMI of 50.0-59.9, adult Z68.43 Active Problem Mild intermittent asthma without complication J45.20 Active Problem Iron deficiency anemia, unspecified iron deficiency anemia type D50.9 Active Medications No Known Medications Results No Known Results Summary Purpose [employer] Submission
--- OUTSIDE RECORDS SUMMARY | 2018-03-01 18:44 | XMS REPORT ---
Author Author EPRRI NOVAK Organization [employer] Address Unknown Phone Unavailable Care Team Providers Care Rail Layer Name Role Phone PERRI NOVAK CP Unavailable [...] Z90.710 Active Problem Anemia D64.9 Active Medications Medication Code System Code Instructions Start Date End Date Status Dosage Lyrica [facility] [address]-84 75 MG Orally Two Times a day 2 capsule Results No Known Results Summary Purpose [employer] Submission
--- OUTSIDE RECORDS SUMMARY | 2018-03-01 18:44 | XMS REPORT ---
Author Author OMAR DAWSON Organization [employer] Address Unknown Phone Unavailable Care Team Providers Care Commercial Baking Teacher Name Role Phone OMAR DAWSON CP Unavailable Allergies, Adverse Reactions, Alerts Substance [...] Problem History of hysterectomy Z90.710 Active Assessment Bronchitis J40 Active Problem Anemia D64.9 Active Medications Medication Code System Code Instructions Start Date End Date Status Dosage Amoxicillin [facility] [address]-79 500 MG Orally 3 times a day Aug 20, 2016 Aug 27, 2016 1 capsule Blood Glucose Monitor System ND 0 glucometer AccuCheck Smart View December 18, 2015 test blood sugar Lyrica [facility] [address]-71 75 MG Orally Two Times a day 2 capsule Procedures Procedure Coding System Code Date Office Visit, Est Pt., Level 2 CPT-4 93577 Aug 20, 2016 Vital Signs Date/Time: Aug 20, 2016 Cardiac Monitoring Heart Rate 78 bpm Weight 313 lbs Height 65 in BMI 52.08 Index Blood Pressure Diastolic 80 mmHg Blood Pressure Systolic 130 mmHg Results No Known Results Summary Purpose [employer] Submission
--- OUTSIDE RECORDS SUMMARY | 2018-03-01 18:45 | XMS REPORT ---
Author Author PERRI NOVAK Organization [facility] Address [address] [place] [address] Care Team Providers Care American Indian Studies Professor Name Role Phone PERRI NOVAK Unavailable PROBLEMS Type Condition ICD9-CM Code [id number] Code Onset Dates Condition Status SNOMED Code Problem Iron deficiency anemia, unspecified iron deficiency anemia type D50.9 Active 72368015 Problem Morbid obesity due to excess calories E66.01 Active 766764846 Problem Mild intermittent asthma without complication J45.20 Active 336113203 Problem Hearing loss, bilateral H91.93 Active 41957664 Problem Recurrent acute serous otitis media of left ear H65.05 Active 137727021 Problem Bronchitis J40 Active 63997635 Problem Type 2 diabetes mellitus without complication, without long-term current use of insulin E11.9 Active 771237372 Problem Acute non-recurrent maxillary sinusitis J01.00 Active 86335457 Problem Fibromyalgia M79.7 Active 237888509 Problem Essential hypertension I10 Active 15958013 Problem History of hysterectomy Z90.710 Active 437196961 Problem Anemia D64.9 Active 925285267 Problem Positive CHRISTOS (antinuclear antibody) R76.8 Active 364482363 Problem Elevated liver enzymes R74.8 Active 072590778 ALLERGIES Unknown Allergies SOCIAL HISTORY No smoking Hx information available PLAN OF CARE VITAL SIGNS MEDICATIONS Medication Instructions Dosage Frequency Start Date End Date Duration Status Flovent HFA 110 MCG/ACT 2 puffs by Inhalation route 2 times per day Jun, 90 days Active Cymbalta 30 MG Orally Once a day 1 capsule 24h Jul, 90 days Active Lyrica 75 MG Orally Two Times a day 2 capsule 12h 90 days Active RESULTS No Results PROCEDURES No Known procedures IMMUNIZATIONS No Known Immunizations
--- OUTSIDE RECORDS SUMMARY | 2018-03-01 18:45 | XMS REPORT ---
Author Author PERRI NOVAK [facility] [employer] Address Unknown Phone Unavailable Care Team Providers Care Medical Records Custodian Name Role Phone PERRI NOVAK CP Unavailable [...] current use of insulin E11.9 Active Assessment Fibromyalgia M79.7 Active Problem Positive CHRISTOS (antinuclear antibody) R76.8 Active Assessment Essential hypertension I10 Active Problem Essential hypertension I10 Active Assessment Type 2 diabetes mellitus without complication, without long-term current use of insulin E11.9 Active Problem History of hysterectomy Z90.710 Active Medications Medication Code System Code Instructions Start Date End Date Status Dosage Lyrica [facility] [address]-49 75 MG Orally Two Times a day 2 capsule Losartan Potassium [facility] [address]-52 25 MG Orally Once a day January 02, 2016 1 tablet Cymbalta [facility] [address]-39 30 MG Orally Once a day Jul 31, 2016 1 capsule Blood Glucose Monitor System [facility] 0 glucometer AccuCheck Smart View December 18, 2015 test blood sugar MetFORMIN HCl ER [facility] [address]-59 500 MG Orally 2 times a day December 18, 2015 1 tablet Procedures Procedure Coding System Code Date MICROALBUMIN, SEMIQUANT CPT-4 15544 Jul 31, 2016 COMPREHEN METABOLIC PANEL CPT-4 75549 Jul 31, 2016 GLYCATED HEMOGLOBIN TEST CPT-4 42691 Jul 31, 2016 VENIPUNCT, ROUTINE* CPT-4 78406 Jul 31, 2016 LIPID PANEL CPT-4 44932 Jul 31, 2016 Office Visit, Est Pt., Level 4 CPT-4 54484 Jul 31, 2016 Vital Signs Date/Time: Jul 31, 2016 Cardiac Monitoring Heart Rate 80 bpm Weight 313.6 lbs Height 65 in BMI 52.18 Index Blood Pressure Diastolic 86 mmHg Blood Pressure Systolic 128 mmHg Results Name Result Date Reference Range Unit Abnormality Flag ROUTINE VENIPUNCTURE Summary Purpose [employer] Submission
--- OUTSIDE RECORDS SUMMARY | 2018-03-01 18:45 | XMS REPORT ---
Author Author PERRI NOVAK [facility] [employer] Address Unknown Phone Unavailable Care Team Providers Care Wader Boot Top Assembler Name Role Phone PERRI NOVAK CP Unavailable Allergies, Adverse Reactions, Alerts Substance Reaction Event Type Sulfamethoxazole-Trimethoprim rash Drug Allergy Remeron Info Not Available Drug Allergy BuSpar Info Not Available Drug Allergy Problems Problem Type Condition Code Onset Dates Condition Status Problem Pain in joint, site unspecified 719.40 Active Problem Unspecified myalgia and myositis 729.1 Active Problem Other malaise and fatigue 780.79 Active Problem Other atopic dermatitis and related conditions 691.8 Active Problem Obesity, unspecified 278.00 Active Problem Scanty or infrequent menstruation 626.1 Active Problem Screening for malignant neoplasm of the cervix V76.2 Active Problem Screening examination for venereal disease V74.5 Active Problem Essential hypertension, benign 401.1 Active Problem Hip, thigh, leg, and ankle, abrasion or friction burn, without mention of infection 916.0 Active Problem Other, multiple, and unspecified sites, insect bite, nonvenomous, without mention of infection 919.4 Active Problem Plantar fascial fibromatosis 728.71 Active Problem Hip, thigh, leg, and ankle, insect bite, nonvenomous, without mention of infection 916.4 Active Problem Abdominal pain, right upper quadrant 789.01 Active Problem Unspecified viral infection, in conditions classified elsewhere and of unspecified site 079.99 Active Problem Abdominal pain, generalized 789.07 Active Problem Acute upper respiratory infections of unspecified site 465.9 Active Problem Contact dermatitis and other eczema due to plants (except food) 692.6 Active Problem Simple or unspecified chronic serous otitis media 381.10 Active Problem Diarrhea 787.91 Active Problem Fever, unspecified 780.60 Active Problem Nausea alone 787.02 Active Problem Other diseases of nasal cavity and sinuses 478.19 Active Problem Throat pain 784.1 Active Problem Cough 786.2 Active Problem Other acute sinusitis 461.8 Active Assessment URI (upper respiratory infection) J06.9 Active Problem Acute sinusitis, unspecified 461.9 Active Problem Contact dermatitis and other eczema, due to unspecified cause 692.9 Active Problem Nausea with vomiting 787.01 Active Assessment Essential hypertension I10 Active Problem Unspecified otalgia 388.70 Active Assessment Pertussis exposure Z20.89 Active Problem Acute pharyngitis 462 Active Problem Accidental fall on or from sidewalk curb E880.1 Active Problem Unspecified site of ankle sprain and strain 845.00 Active Problem Unspecified pruritic disorder 698.9 Active Problem Rash and other nonspecific skin eruption 782.1 Active Medications Medication Code System Code Instructions Start Date End Date Status Dosage Enalapril Maleate [facility] [address]-25 10 MG Orally Once a day--voucher Jul 1 tablet Azithromycin [facility] [address]-86 250 MG Orally Once a day Jul 27, 2015 Aug 03, 2015 2 tablets on the first day, then 1 tablet daily for 6 days Procedures Procedure Coding System Code Date Office Visit, Est Pt., Level 4 CPT-4 32656 Jul 27, 2015 CULTURE, BACTERIA, OTHER CPT-4 34188 Jul 27, 2015 Vital Signs Date/Time: Jul 27, 2015 Temperature 98.1 F Weight 324.6 lbs Height 65 in BMI 54.01 Index Blood Pressure Diastolic 95 mmHg Blood Pressure Systolic 152 mmHg Cardiac Monitoring Heart Rate 94 bpm Results No Known Results Summary Purpose [employer] Submission
--- OUTSIDE RECORDS SUMMARY | 2018-03-01 18:45 | XMS REPORT ---
Author Author PERRI NOVAK Organization [employer] Address Unknown Phone Unavailable Care Team Providers Care Construction Equipment Operator Name Role Phone PERRI NOVAK CP Unavailable [...] current use of insulin E11.9 Active Assessment Anemia D64.9 Active Problem Positive CHRISTOS (antinuclear antibody) R76.8 Active Problem Essential hypertension I10 Active Problem History of hysterectomy Z90.710 Active Medications No Known Medications Procedures Procedure Coding System Code Date ASSAY OF IRON CPT-4 58461 Aug 15, 2016 AUTOMATED RETICULOCYTE COUNT CPT-4 50120 Aug 15, 2016 IRON BINDING TEST CPT-4 90082 Aug 15, 2016 BLOOD FOLIC ACID SERUM CPT-4 53093 Aug 15, 2016 VITAMIN B-12 CPT-4 42823 Aug 15, 2016 VENIPUNCT, ROUTINE* CPT-4 07141 Aug 15, 2016 Results Name Result Date Reference Range Unit Abnormality Flag ROUTINE VENIPUNCTURE Summary Purpose [employer] Submission
--- OUTSIDE RECORDS SUMMARY | 2018-03-01 18:45 | XMS REPORT ---
Author Author PERRI NOVAK [facility] [employer] Address Unknown Phone Unavailable Care Team Providers Care Patient Accounts Coordinator Name Role Phone PERRI NOVAK CP Unavailable Allergies, Adverse Reactions, Alerts Substance Reaction Event Type Sulfamethoxazole-Trimethoprim rash Drug Allergy Remeron Info Not Available Drug Allergy BuSpar Info Not Available Drug Allergy Problems Problem Type Condition Code Onset Dates Condition Status Problem Essential hypertension I10 Active Problem Positive CHRISTOS (antinuclear antibody) R76.8 Active Problem Nausea R11.0 Active Assessment Positive CHRISTOS (antinuclear antibody) R76.8 Active Assessment Nausea R11.0 Active Assessment Essential hypertension I10 Active Medications Medication Code System Code Instructions Start Date End Date Status Dosage Zofran [facility] [address]-48 8 MG Orally bid prn Sep 21, 2015 1 tablet Enalapril Maleate [facility] [address]-15 10 MG Orally Once a day Jul 27, 2015 1 tablet Procedures Procedure Coding System Code Date Office Visit, Est Pt., Level 3 CPT-4 24651 Sep 21, 2015 VENIPUNCT, ROUTINE* CPT-4 04451 Sep 21, 2015 COMPREHEN METABOLIC PANEL CPT-4 12880 Sep 21, 2015 Vital Signs Date/Time: Sep 21, 2015 Temperature 98.4 F Weight 325.9 lbs Height 65 in BMI 54.23 Index Blood Pressure Diastolic 90 mmHg Blood Pressure Systolic 138 mmHg Cardiac Monitoring Heart Rate 92 bpm Results Name Result Date Reference Range Unit Abnormality Flag ROUTINE VENIPUNCTURE CMP ----Sodium, Serum 137 20150921 134-144 mmol/L ----BUN/Creatinine Ratio 25 20150921 8-20 H ----Chloride, Serum 99 20150921 97-108 mmol/L ----Potassium, Serum 4.5 20150921 3.5-5.2 mmol/L ----Calcium, Serum 9.1 20150921 8.7-10.2 mg/dL ----Protein, Total, Serum 6.8 20150921 6.0-8.5 g/dL ----Carbon Dioxide, Total 26 20150921 18-29 mmol/L ----A/G Ratio 1.7 20150921 1.1-2.5 ----eGFR If NonAfricn Am 121 [id number] >59 mL/min/1.73 ----Bilirubin, Total 0.4 20150921 0.0-1.2 mg/dL ----eGFR If Africn Am 139 [id number] >59 mL/min/1.73 ----BUN 15 20150921 6-20 mg/dL ----Albumin, Serum 4.3 20150921 3.5-5.5 g/dL ----Globulin, Total 2.5 20150921 1.5-4.5 g/dL ----Creatinine, Serum 0.59 20150921 0.57-1.00 mg/dL ----ALT (SGPT) 69 20150921 0-32 IU/L H ----Glucose, Serum 118 20150921 65-99 mg/dL H ----Alkaline Phosphatase, S 83 20150921 39-117 IU/L ----AST (SGOT) 47 20150921 0-40 IU/L H Summary Purpose [employer]Works Submission
--- OUTSIDE RECORDS SUMMARY | 2018-03-01 18:45 | XMS REPORT ---
Author Author PERRI NOVAK Organization [employer] Address Unknown Phone Unavailable Care Team Providers Care South Asian History Professor Name Role Phone PERRI NOVAK CP Unavailable [...]
--- OUTSIDE RECORDS SUMMARY | 2018-03-01 18:46 | XMS REPORT ---
Author Author PERRI NOVAK Organization [employer] Address Unknown Phone Unavailable Care Team Providers Care Truck And Transport Mechanic Name Role Phone PERRI NOVAK CP Unavailable [...] current use of insulin E11.9 Active Problem Positive CHRISTOS (antinuclear antibody) R76.8 Active Problem Essential hypertension I10 Active Problem History of hysterectomy Z90.710 Active Medications No Known Medications Results No Known Results Summary Purpose [employer] Submission
--- OUTSIDE RECORDS SUMMARY | 2018-03-01 18:46 | XMS REPORT ---
Author Author PERRI NOVAK Organization [employer] Address Unknown Phone Unavailable Care Team Providers Care Community Arts Officer Name Role Phone PERRI NOVAK CP Unavailable Allergies, Adverse Reactions, Alerts Substance Reaction Event Type Sulfamethoxazole-Trimethoprim rash Drug Allergy Remeron Info Not Available Drug Allergy BuSpar Info Not Available Drug Allergy Problems Problem Type Condition Code Onset Dates Condition Status Problem Essential hypertension I10 Active Problem Positive CHRISTOS (antinuclear antibody) R76.8 Active Problem Nausea R11.0 Active Assessment Gastroenteritis 558.9 Active Assessment Left wrist pain 719.43 Active Medications Medication Code System Code Instructions Start Date End Date Status Dosage Zofran [facility] [address]-12 4 MG Orally bid prn Sep 21, 2015 1 tablet Dicyclomine HCl [facility] [address]-24 10 MG Orally three times a day prn5 Oct 31, 2015 Nov 05, 2015 1 capsule Procedures Procedure Coding System Code Date Office Visit, Est Pt., Level 4 CPT-4 41813 Oct 31, 2015 X-RAY EXAM OF WRIST CPT-4 63327 Oct 31, 2015 Vital Signs Date/Time: Oct 31, 2015 Temperature 97.8 F Weight 328.8 lbs Height 65 in BMI 54.71 Index Blood Pressure Diastolic 86 mmHg Blood Pressure Systolic 132 mmHg Cardiac Monitoring Heart Rate 90 bpm Results No Known Results Summary Purpose eClinicalWorks Submission
--- OUTSIDE RECORDS SUMMARY | 2018-03-01 18:46 | XMS REPORT ---
Author Author PERRI NOVAK Organization [facility] Address [address] [place] [address] Care Team Providers Care Silk Brusher Name Role Phone PERRI NOVAK Unavailable PROBLEMS Type Condition ICD9-CM Code [id number] Code Onset Dates Condition Status SNOMED Code Problem Recurrent acute serous otitis media of left ear H65.05 Active 873925989 Problem Hearing loss, bilateral H91.93 Active 38130297 Problem Acute non-recurrent maxillary sinusitis J01.00 Active 66420369 Problem Anhedonia R45.84 Active 69148347 Problem Essential hypertension I10 Active 12655086 Problem MCTD (mixed connective tissue disease) M35.1 Active 099342320 Problem Hearing loss of left ear, unspecified hearing loss type H91.92 Active 31858066 Problem Observed sleep apnea G47.30 Active 19489910 Problem Mixed hyperlipidemia E78.2 Active 029955091 Problem Mixed connective tissue disease M35.1 Active 755172012 Problem Bilateral hearing loss, unspecified hearing loss type H91.93 Active 35109616 Problem Elevated liver enzymes R74.8 Active 241011836 Problem Anemia D64.9 Active 974760984 Problem Positive CHRISTOS (antinuclear antibody) R76.8 Active 670843240 Problem History of hysterectomy Z90.710 Active 181821087 Problem Mild intermittent asthma without complication J45.20 Active 012072986 Problem Morbid obesity due to excess calories E66.01 Active 362766412 Problem Iron deficiency anemia, unspecified iron deficiency anemia type D50.9 Active 78416842 Problem Bronchitis J40 Active 26273961 Problem Type 2 diabetes mellitus without complication, without long-term current use of insulin E11.9 Active 263613989 Problem Fibromyalgia M79.7 Active 115637024 ALLERGIES No Information SOCIAL HISTORY Never Assessed PLAN OF CARE VITAL SIGNS MEDICATIONS No Known Medications RESULTS No Results PROCEDURES No Known procedures IMMUNIZATIONS No Known Immunizations MEDICAL (GENERAL) HISTORY Type Description Date Medical History hypertension Medical History asthma Medical History pre-diabetes Medical History anemia Medical History Post CHRISTOS Ref to Rheum [facility] 2-15 keeps rescheduling Medical History Plantar fascial fibromatosis Medical History Obesity, unspecified Surgical History partial hysterectomy Surgical History dilatation and curettage Surgical History Colonoscopy Aaron Normal
--- OUTSIDE RECORDS SUMMARY | 2018-03-01 18:46 | XMS REPORT ---
Author Author PERRI NOVAK Organization [employer] Address Unknown Phone Unavailable Care Team Providers Care Suede Cleaner Name Role Phone PERRI NOVAK CP Unavailable Allergies No Known Allergies Problems Problem Type Condition Code Onset Dates Condition Status Problem Positive CHRISTOS (antinuclear antibody) R76.8 Active Problem Morbid obesity with BMI of 50.0-59.9, adult Z68.43 Active Problem Anemia D64.9 Active Problem Elevated liver enzymes R74.8 Active Problem Nausea R11.0 Active Problem Essential hypertension I10 Active Problem Diabetes E11.9 Active Problem History of hysterectomy Z90.710 Active Medications No Known Medications Results No Known Results Summary Purpose eClinicalWorks Submission
--- OUTSIDE RECORDS SUMMARY | 2018-03-01 18:46 | XMS REPORT ---
Author Author PERRI NOVAK Organization [facility] Address [address] [place] [address] Care Team Providers Care Truck Driver'S Offsider Name Role Phone PERRI NOVAK Unavailable PROBLEMS Type Condition ICD9-CM Code [id number] Code Onset Dates Condition Status SNOMED Code Problem Recurrent acute serous otitis media of left ear H65.05 Active 350072930 Problem Hearing loss, bilateral H91.93 Active 41052963 Problem Acute non-recurrent maxillary sinusitis J01.00 Active 78403997 Problem Anhedonia R45.84 Active 50143042 Problem Essential hypertension I10 Active 46711650 Problem MCTD (mixed connective tissue disease) M35.1 Active 147812678 Problem Hearing loss of left ear, unspecified hearing loss type H91.92 Active 02203957 Problem Observed sleep apnea G47.30 Active 40825129 Problem Mixed hyperlipidemia E78.2 Active 387683651 Problem Mixed connective tissue disease M35.1 Active 589299136 Problem Bilateral hearing loss, unspecified hearing loss type H91.93 Active 84777477 Problem Elevated liver enzymes R74.8 Active 478195348 Problem Anemia D64.9 Active 891548909 Problem Positive CHRISTOS (antinuclear antibody) R76.8 Active 827253029 Problem History of hysterectomy Z90.710 Active 562599351 Problem Mild intermittent asthma without complication J45.20 Active 704760048 Problem Morbid obesity due to excess calories E66.01 Active 197451328 Problem Iron deficiency anemia, unspecified iron deficiency anemia type D50.9 Active 29692707 Problem Bronchitis J40 Active 31110553 Problem Type 2 diabetes mellitus without complication, without long-term current use of insulin E11.9 Active 407765225 Problem Fibromyalgia M79.7 Active 361888852 ALLERGIES No Information SOCIAL HISTORY Never Assessed PLAN OF CARE VITAL SIGNS MEDICATIONS Medication Instructions Dosage Frequency Start Date End Date Duration Status Lyrica 75 MG Orally 3 times a day 2 capsule 8h Active RESULTS No Results PROCEDURES No Known procedures IMMUNIZATIONS No Known Immunizations MEDICAL (GENERAL) HISTORY Type Description Date Medical History hypertension Medical History asthma Medical History pre-diabetes Medical History anemia Medical History Post CHRISTOS Ref to Rheum [facility] 2-15 keeps rescheduling Medical History Plantar fascial fibromatosis Medical History Obesity, unspecified Surgical History partial hysterectomy Surgical History dilatation and curettage Surgical History Colonoscopy Aaron Normal
--- OUTSIDE RECORDS SUMMARY | 2018-03-01 18:46 | XMS REPORT ---
Author Author PERRI NOVAK Organization [facility] Address [address] [place] [address] Care Team Providers Care Fermenter Name Role Phone PERRI NOVAK Unavailable PROBLEMS Type Condition ICD9-CM Code [id number] Code Onset Dates Condition Status SNOMED Code Problem Recurrent acute serous otitis media of left ear H65.05 Active 421290267 Problem Hearing loss, bilateral H91.93 Active 96234537 Problem Acute non-recurrent maxillary sinusitis J01.00 Active 44164789 Problem Anhedonia R45.84 Active 64348394 Problem Essential hypertension I10 Active 72605012 Problem MCTD (mixed connective tissue disease) M35.1 Active 686204285 Problem Hearing loss of left ear, unspecified hearing loss type H91.92 Active 58245232 Problem Observed sleep apnea G47.30 Active 90271649 Problem Mixed hyperlipidemia E78.2 Active 671828228 Problem Mixed connective tissue disease M35.1 Active 882748675 Problem Bilateral hearing loss, unspecified hearing loss type H91.93 Active 95182944 Problem Elevated liver enzymes R74.8 Active 545582346 Problem Anemia D64.9 Active 358739321 Problem Positive CHRISTOS (antinuclear antibody) R76.8 Active 779086609 Problem History of hysterectomy Z90.710 Active 697604467 Problem Mild intermittent asthma without complication J45.20 Active 280966800 Problem Morbid obesity due to excess calories E66.01 Active 527093086 Problem Iron deficiency anemia, unspecified iron deficiency anemia type D50.9 Active 42124621 Problem Bronchitis J40 Active 55299215 Problem Type 2 diabetes mellitus without complication, without long-term current use of insulin E11.9 Active 441196324 Problem Fibromyalgia M79.7 Active 764021502 ALLERGIES No Information SOCIAL HISTORY Never Assessed PLAN OF CARE VITAL SIGNS MEDICATIONS No Known Medications RESULTS No Results PROCEDURES No Known procedures IMMUNIZATIONS No Known Immunizations MEDICAL (GENERAL) HISTORY Type Description Date Medical History hypertension Medical History asthma Medical History pre-diabetes Medical History anemia Medical History Post CHRISTOS Ref to Rheum [facility] 2-15 keeps rescheduling Medical History Plantar fascial fibromatosis Medical History Obesity, unspecified Surgical History partial hysterectomy Surgical History dilatation and curettage Surgical History Colonoscopy Aaron Normal
--- OUTSIDE RECORDS SUMMARY | 2018-03-01 18:46 | XMS REPORT ---
Author Author PERRI NOVAK [facility] e[employer]Works Address Unknown Phone Unavailable Care Team Providers Care Forensic Analyst Name Role Phone PERRI NOVAK CP Unavailable [...] current use of insulin E11.9 Active Assessment Elevated liver enzymes R74.8 Active Problem Positive CHRISTOS (antinuclear antibody) R76.8 Active Problem Essential hypertension I10 Active Problem History of hysterectomy Z90.710 Active Medications Medication Code System Code Instructions Start Date End Date Status Dosage Lovastatin [facility] [address]-25 10 mg Orally Once a day Aug 06, 2016 1 tablet with a meal Results No Known Results Summary Purpose eClinicalWorks Submission
--- OUTSIDE RECORDS SUMMARY | 2018-03-01 18:46 | XMS REPORT ---
Author Author PERRI NOVAK [facility] eClinical[employer] Address Unknown Phone Unavailable Care Team Providers Care Snow Plow Tractor Operator Name Role Phone PERRI NOVAK CP [...] Active Problem Other acute sinusitis 461.8 Active Problem Acute sinusitis, unspecified 461.9 Active Problem Contact dermatitis and other eczema, due to unspecified cause 692.9 Active Problem Nausea with vomiting 787.01 Active Problem Unspecified otalgia 388.70 Active Problem Acute pharyngitis 462 Active Problem Accidental fall on or from sidewalk curb E880.1 Active Problem Unspecified site of ankle sprain and strain 845.00 Active Problem Unspecified pruritic disorder 698.9 Active Problem Rash and other nonspecific skin eruption 782.1 Active Medications No Known Medications Results No Known Results Summary Purpose eClinicalWorks Submission
--- OUTSIDE RECORDS SUMMARY | 2018-03-01 18:47 | XMS REPORT ---
Author Author PERRI NOVAK [facility] eClinical[employer] Address Unknown Phone Unavailable Care Team Providers Care Cofounder Name Role Phone PERRI NOVAK CP Unavailable [...] Fibromyalgia M79.7 Active Problem Bronchitis J40 Active Assessment Type 2 diabetes mellitus without complication, without long-term current use of insulin E11.9 Active Assessment Iron deficiency anemia, unspecified iron deficiency anemia type D50.9 Active Assessment Hearing loss, bilateral H91.93 Active Problem Positive CHRISTOS (antinuclear antibody) R76.8 Active Problem Essential hypertension I10 Active Assessment Essential hypertension I10 Active Problem History of hysterectomy Z90.710 Active Assessment Fibromyalgia M79.7 Active Problem Anemia D64.9 Active Medications Medication Code System Code Instructions Start Date End Date Status Dosage MetFORMIN HCl ER [facility] [address]-70 500 MG Orally 2 times a day December 18, 2015 1 tablet Losartan Potassium [facility] [address]-69 25 MG Orally Once a day January 02, 2016 1/2 tablet Blood Glucose Monitor System ND 0 glucometer AccuCheck Smart View December 18, 2015 test blood sugar Cymbalta [facility] [address]-51 30 MG Orally Once a day Jul 31, 2016 1 capsule Lyrica [facility] [address]-46 75 MG Orally Two Times a day 2 capsule Procedures Procedure Coding System Code Date COMPREHEN METABOLIC PANEL CPT-4 70325 Aug 28, 2016 Office Visit, Est Pt., Level 4 CPT-4 69284 Aug 28, 2016 COMPLETE CBC W/AUTO DIFF WBC CPT-4 70116 Aug 28, 2016 VENIPUNCT, ROUTINE* CPT-4 05483 Aug 28, 2016 Vital Signs Date/Time: Aug 28, 2016 Cardiac Monitoring Heart Rate 78 bpm Weight 312 lbs Height 65 in BMI 51.91 Index Blood Pressure Diastolic 70 mmHg Blood Pressure Systolic 110 mmHg Results Name Result Date Reference Range Unit Abnormality Flag CMP ----Calcium, Serum 9.5 62407928 8.7-10.2 mg/dL ----Carbon Dioxide, Total 27 56287258 18-29 mmol/L ----ALT (SGPT) 35 54088015 0-32 IU/L H ----Creatinine, Serum 0.59 24547849 0.57-1.00 mg/dL ----AST (SGOT) 24 09542751 0-40 IU/L ----eGFR If NonAfricn Am 120 42068400 >59 mL/min/1.73 ----Alkaline Phosphatase, S 93 43502909 39-117 IU/L ----eGFR If Africn Am 138 17952553 >59 mL/min/1.73 ----Bilirubin, Total 0.5 02042012 0.0-1.2 mg/dL ----BUN/Creatinine Ratio 15 56012139 8-20 ----A/G Ratio 1.3 53399577 1.1-2.5 ----Sodium, Serum 138 55987397 136-144 mmol/L ----Globulin, Total 3.2 22656699 1.5-4.5 g/dL ----Potassium, Serum 4.9 58399065 3.5-5.2 mmol/L ----Glucose, Serum 107 40045700 65-99 mg/dL H ----Chloride, Serum 96 67782229 97-106 mmol/L L ----Albumin, Serum 4.1 12807659 3.5-5.5 g/dL ----BUN 9 62176742 6-20 mg/dL ----Protein, Total, Serum 7.3 28693288 6.0-8.5 g/dL ROUTINE VENIPUNCTURE CBC ----MCHC 32.0 39099997 31.5-35.7 g/dL ----MCH 25.2 04911097 26.6-33.0 pg L ----Platelets 279 41247179 150-379 x10E3/uL ----RDW 14.7 34660255 12.3-15.4 % ----Immature Granulocytes 0 29099764 % ----Immature Grans (Abs) 0.0 24443169 0.0-0.1 x10E3/uL ----Lymphs 35 06747078 % ----Monocytes 5 42188895 % ----Neutrophils 58 14876741 % ----Neutrophils (Absolute) 5.3 52859980 1.4-7.0 x10E3/uL ----Hematocrit 41.2 42806827 34.0-46.6 % ----Lymphs (Absolute) 3.3 67779237 0.7-3.1 x10E3/uL H ----MCV 79 46769738 79-97 fL ----RBC 5.24 17693659 3.77-5.28 x10E6/uL ----Eos 2 89583250 % ----Basos 0 26061341 % ----Hemoglobin 13.2 48754752 11.1-15.9 g/dL ----Baso (Absolute) 0.0 51037472 0.0-0.2 x10E3/uL ----WBC 9.3 99904236 3.4-10.8 x10E3/uL ----Monocytes(Absolute) 0.5 64435251 0.1-0.9 x10E3/uL ----Eos (Absolute) 0.2 00225624 0.0-0.4 x10E3/uL Summary Purpose eClinicalWorks Submission
--- OUTSIDE RECORDS SUMMARY | 2018-03-01 18:47 | XMS REPORT ---
Author Author SEGUNDO JEFFERS Organization [employer] Address Unknown Phone Unavailable Care Team Providers Care Clinical Quality Assurance Associate Name Role Phone SEGUNDO JEFFERS CP Unavailable Allergies, Adverse Reactions, Alerts Substance Reaction Event Type Sulfamethoxazole-Trimethoprim rash Drug Allergy Remeron Info Not Available Drug Allergy BuSpar Info Not Available Drug Allergy Problems Problem Type Condition Code Onset Dates Condition Status Problem Essential hypertension I10 Active Problem Positive CHRISTOS (antinuclear antibody) R76.8 Active Problem Nausea R11.0 Active Assessment Nausea R11.0 Active Assessment Upper respiratory tract infection, unspecified type 465.9 Active Assessment Cutaneous abscess of neck L02.11 Active Medications Medication Code System Code Instructions Start Date End Date Status Dosage Enalapril Maleate [facility] [address]-17 10 MG Orally Once a day Jul 27, 2015 1 tablet Zofran [facility] [address]-82 4 MG Orally bid prn Sep 21, 2015 1 tablet Bactroban [facility] [address]-92 2 % Externally Three times a day Oct 17, 2015 Oct 22, 2015 1 application to affected area Mucinex DM [facility] [address]-89 30-600 MG Orally every 12 hrs Oct 17, 2015 Oct 27, 2015 1 tablet as needed Procedures Procedure Coding System Code Date Office Visit, Est Pt., Level 3 CPT-4 90996 Oct 17, 2015 Vital Signs Date/Time: Oct 17, 2015 Temperature 99.2 F Weight 325.8 lbs Height 65 in BMI 54.21 Index Blood Pressure Diastolic 96 mmHg Blood Pressure Systolic 128 mmHg Cardiac Monitoring Heart Rate 88 bpm Results No Known Results Summary Purpose eClinicalWorks Submission
--- OUTSIDE RECORDS SUMMARY | 2018-03-01 18:47 | XMS REPORT ---
Author Author PERRI NOVAK Organization [employer] Address Unknown Phone Unavailable Care Team Providers Care Rover Tender Name Role Phone PERRI NOVAK CP Unavailable [...] Problem History of hysterectomy Z90.710 Active Assessment Anemia D64.9 Active Problem Anemia D64.9 Active Medications No Known Medications Procedures Procedure Coding System Code Date TEST FOR BLOOD, FECES CPT-4 59415 Aug 16, 2016 Results Name Result Date Reference Range Unit Abnormality Flag HEMOCCULT (IN HOUSE) ----RESULTS Positive [id number] ----Control + [id number] ----Lot # [id number] ----Exp date [id number] HEMOCCULT (IN HOUSE)-Additional ----Exp Date [id number] ----Control + [id number] ----Lot # [id number] ----RESULTS Positive [id number] Summary Purpose eClinicalWorks Submission
--- OUTSIDE RECORDS SUMMARY | 2018-03-01 18:48 | XMS REPORT ---
Author Author PERRI NOVAK Organization [facility] Address [address] [place] [address] Care Team Providers Care Procedures Rn Name Role Phone PERRI NOVAK Unavailable PROBLEMS Type Condition ICD9-CM Code DQQ31-MX Code Onset Dates Condition Status SNOMED Code Problem Recurrent acute serous otitis media of left ear H65.05 Active 635346026 Problem Hearing loss, bilateral H91.93 Active 78535210 Problem Acute non-recurrent maxillary sinusitis J01.00 Active 83268146 Problem Anhedonia R45.84 Active 41471827 Problem Essential hypertension I10 Active 66216279 Problem MCTD (mixed connective tissue disease) M35.1 Active 521397244 Problem Hearing loss of left ear, unspecified hearing loss type H91.92 Active 91232034 Problem Observed sleep apnea G47.30 Active 96882630 Problem Mixed hyperlipidemia E78.2 Active 766696429 Problem Mixed connective tissue disease M35.1 Active 767641498 Problem Bilateral hearing loss, unspecified hearing loss type H91.93 Active 73564420 Problem Elevated liver enzymes R74.8 Active 685707887 Problem Anemia D64.9 Active 815040617 Problem Positive CHRISTOS (antinuclear antibody) R76.8 Active 356878010 Problem History of hysterectomy Z90.710 Active 589090402 Problem Mild intermittent asthma without complication J45.20 Active 803543796 Problem Morbid obesity due to excess calories E66.01 Active 201167493 Problem Iron deficiency anemia, unspecified iron deficiency anemia type D50.9 Active 19427486 Problem Bronchitis J40 Active 91027912 Problem Type 2 diabetes mellitus without complication, without long-term current use of insulin E11.9 Active 680743697 Problem Fibromyalgia M79.7 Active 677917780 ALLERGIES No Known Allergies SOCIAL HISTORY No smoking Hx information available PLAN OF CARE VITAL SIGNS MEDICATIONS No Known Medications RESULTS No Results PROCEDURES No Known procedures IMMUNIZATIONS No Known Immunizations
--- OUTSIDE RECORDS SUMMARY | 2018-03-01 18:48 | XMS REPORT ---
Author Author KAREN GONZALEZ Organization [employer] Address Unknown Phone Unavailable Care Team Providers Care Geriatric Social Worker Name Role Phone KAREN GONZALEZ CP Unavailable Allergies, Adverse Reactions, Alerts Substance Reaction Event Type Sulfamethoxazole-Trimethoprim rash Drug Allergy Remeron Info Not Available Drug Allergy BuSpar Info Not Available Drug Allergy Problems Problem Type Condition Code Onset Dates Condition Status Problem Essential hypertension I10 Active Problem Positive CHRISTOS (antinuclear antibody) R76.8 Active Problem Nausea R11.0 Active Assessment Upper respiratory tract infection, unspecified type J06.9 Active Medications Medication Code System Code Instructions Start Date End Date Status Dosage Zofran [facility] [address]-25 4 MG Orally bid prn Sep 21, 2015 1 tablet Zithromax [facility] [address]-33 250 MG Orally Once a day Oct 26, 2015 Oct 31, 2015 2 tablets on the first day, then 1 tablet daily for 4 days Procedures Procedure Coding System Code Date Office Visit, Est Pt., Level 3 CPT-4 64823 Oct 26, 2015 Vital Signs Date/Time: Oct 26, 2015 Temperature 98.3 F Weight 326.4 lbs Height 65 in BMI 54.31 Index Blood Pressure Diastolic 92 mmHg Blood Pressure Systolic 138 mmHg Cardiac Monitoring Heart Rate 84 bpm Results No Known Results Summary Purpose eClinicalWorks Submission
--- OUTSIDE RECORDS SUMMARY | 2018-03-01 18:48 | XMS REPORT ---
Author Author PERRI NOVAK Organization [employer] Address Unknown Phone Unavailable Care Team Providers Care Health Program Manager Name Role Phone PERRI NOVAK CP [...]
--- OUTSIDE RECORDS SUMMARY | 2018-03-01 18:48 | XMS REPORT ---
Author Author AKILA WEINBERG Organization [facility] Address [address] [place] [address] Care Team Providers Care Portable Pinch Riveter Name Role Phone AKILA WEINBERG Unavailable PROBLEMS Type Condition ICD9-CM Code [id number] Code Onset Dates Condition Status SNOMED Code Problem Recurrent acute serous otitis media of left ear H65.05 Active 765343858 Problem Hearing loss, bilateral H91.93 Active 98013753 Problem Acute non-recurrent maxillary sinusitis J01.00 Active 40660765 Problem Anhedonia R45.84 Active 30778750 Problem Essential hypertension I10 Active 94904611 Problem MCTD (mixed connective tissue disease) M35.1 Active 731804133 Problem Hearing loss of left ear, unspecified hearing loss type H91.92 Active 73175096 Problem Observed sleep apnea G47.30 Active 08033352 Problem Mixed hyperlipidemia E78.2 Active 483777071 Problem Mixed connective tissue disease M35.1 Active 706319757 Problem Bilateral hearing loss, unspecified hearing loss type H91.93 Active 37733852 Problem Elevated liver enzymes R74.8 Active 518680296 Problem Anemia D64.9 Active 026412802 Problem Positive CHRISTOS (antinuclear antibody) R76.8 Active 412587646 Problem History of hysterectomy Z90.710 Active 083309807 Problem Mild intermittent asthma without complication J45.20 Active 142562210 Problem Morbid obesity due to excess calories E66.01 Active 876082436 Problem Iron deficiency anemia, unspecified iron deficiency anemia type D50.9 Active 47170714 Problem Bronchitis J40 Active 24698215 Problem Type 2 diabetes mellitus without complication, without long-term current use of insulin E11.9 Active 404071359 Problem Fibromyalgia M79.7 Active 302503966 ALLERGIES Substance Reaction Event Type Date Status Sulfamethoxazole-Trimethoprim rash Drug Allergy Nov, Active Remeron Unknown Drug Allergy Nov, Active Naproxen swelling Drug Allergy Nov, Active Enalapril Maleate Unknown Drug Allergy Nov, Active Dicyclomine HCl Unknown Drug Allergy Nov, Active BuSpar Unknown Drug Allergy Nov, Active SOCIAL HISTORY No smoking Hx information available PLAN OF CARE VITAL SIGNS Height 65 in 2016-11-07 Weight 314.5 lbs 2016-11-07 Temperature 98.3 degrees Fahrenheit 2016-11-07 Heart Rate 100 bpm 2016-11-07 Respiratory Rate 20 2016-11-07 BMI 52.33 kg/m2 2016-11-07 Blood pressure systolic 112 mmHg 2016-11-07 Blood pressure diastolic 78 mmHg 2016-11-07 MEDICATIONS Medication Instructions Dosage Frequency Start Date End Date Duration Status MetFORMIN HCl ER 500 MG Orally 2 times a day 1 tablet 12h Active Amoxicillin 500 MG Orally 3 times a day, voucher 1 capsule Nov, Nov, 10 day(s) Active PredniSONE 20 mg Orally Once a day, voucher 2 tablets Nov,Nov 05 days Active Lovastatin 10 mg Orally Once a day 1 tablet with a meal 24h Sep, 90 days Active Indomethacin 25 MG Orally Twice a day 2 capsule with food or milk 12h Sep, Dec, 90 days Active Cymbalta 30 MG Orally Once a day 1 capsule 24h Active Lyrica 75 MG Orally Two Times a day 2 capsule 12h Active Losartan Potassium 25 MG Orally Once a day 1/2 tablet 24h Active RESULTS No Results PROCEDURES Procedure Date Ordered Related Diagnosis Body Site Office Visit, Est Pt., Level 3 Nov 07, 2016 IMMUNIZATIONS No Known Immunizations
--- OUTSIDE RECORDS SUMMARY | 2018-03-01 18:48 | XMS REPORT ---
Author Author PERRI NOVAK Organization [employer] Address Unknown Phone Unavailable Care Team Providers Care State Auditor Name Role Phone PERRI NOVAK CP Unavailable [...]
--- OUTSIDE RECORDS SUMMARY | 2018-03-01 18:48 | XMS REPORT ---
Author Author PERRI NOVAK [facility] Address [address] [place] [address] Care Team Providers Care Manufacturing Engineering Technician Name Role Phone PERRI NOVAK Unavailable PROBLEMS Type Condition ICD9-CM Code [id number] Code Onset Dates Condition Status SNOMED Code Problem Recurrent acute serous otitis media of left ear H65.05 Active 434471711 Problem Hearing loss, bilateral H91.93 Active 86279827 Problem Acute non-recurrent maxillary sinusitis J01.00 Active 37340996 Problem Anhedonia R45.84 Active 21054775 Problem Essential hypertension I10 Active 64445624 Problem MCTD (mixed connective tissue disease) M35.1 Active 285155617 Problem Hearing loss of left ear, unspecified hearing loss type H91.92 Active 37753425 Problem Observed sleep apnea G47.30 Active 98630933 Problem Mixed hyperlipidemia E78.2 Active 805203334 Problem Mixed connective tissue disease M35.1 Active 938834206 Problem Bilateral hearing loss, unspecified hearing loss type H91.93 Active 47809802 Problem Elevated liver enzymes R74.8 Active 584883803 Problem Anemia D64.9 Active 175597689 Problem Positive CHRISTOS (antinuclear antibody) R76.8 Active 054574386 Problem History of hysterectomy Z90.710 Active 402123125 Problem Mild intermittent asthma without complication J45.20 Active 817116517 Problem Morbid obesity due to excess calories E66.01 Active 359433332 Problem Iron deficiency anemia, unspecified iron deficiency anemia type D50.9 Active 21573417 Problem Bronchitis J40 Active 01739067 Problem Type 2 diabetes mellitus without complication, without long-term current use of insulin E11.9 Active 525342150 Problem Fibromyalgia M79.7 Active 893142051 ALLERGIES Substance Reaction Event Type Date Status Sulfamethoxazole-Trimethoprim rash Drug Allergy Dec, Active Remeron Unknown Drug Allergy Dec, Active Naproxen swelling Drug Allergy Dec, Active Enalapril Maleate Unknown Drug Allergy Dec, Active Dicyclomine HCl Unknown Drug Allergy Dec, Active BuSpar Unknown Drug Allergy Dec, Active SOCIAL HISTORY Never Assessed PLAN OF CARE Activity Details Follow Up 4 Weeks Reason:Pain/Insomnia VITAL SIGNS Height 65 in 2016-12-12 Weight 319.3 lbs 2016-12-12 Temperature 98.6 degrees Fahrenheit 2016-12-12 Heart Rate 84 bpm 2016-12-12 Respiratory Rate 18 2016-12-12 BMI 53.13 kg/m2 2016-12-12 Blood pressure systolic 134 mmHg 2016-12-12 Blood pressure diastolic 83 mmHg 2016-12-12 MEDICATIONS Medication Instructions Dosage Frequency Start Date End Date Duration Status Indomethacin 25 MG Orally Twice a day 2 capsule with food or milk 12h Sep, Dec, 90 days Active MetFORMIN HCl ER 500 MG Orally 2 times a day 1 tablet 12h Active Losartan Potassium 25 MG Orally Once a day 1/2 tablet 24h Active Lyrica 75 MG Orally 3 times a day 2 capsule 8h Active Cymbalta 30 MG Orally Once a day 1 capsule 24h Active Lovastatin 10 mg Orally Once a day 1 tablet with a meal 24h 90 days Active RESULTS Name Result Date Reference Range HEPATITIS PROFILE 2016-12-12 Hep A Ab, IgM Negative Negative HBsAg Screen Negative Negative Hep B Core Ab, IgM Negative Negative Hep C Virus Ab 0.3 0.0-0.9 A1C (IN HOUSE) 2016-12-12 A1C IN HOUSE 7.4 4.3 - 5.6 % Previous A1c 6.5 Lot [id number] Exp date 10/2018 [place] (STATE) 2016-12-12 HIV (STATE) 2016-12-12 PROCEDURES Procedure Date Ordered Result Body Site GLYCATED HEMOGLOBIN TEST December 12, 2016 No Charge December 12, 2016 ACUTE HEPATITIS PANEL December 12, 2016 VENIPUNCT, ROUTINE* December 12, 2016 IMMUNIZATIONS No Known Immunizations MEDICAL (GENERAL) HISTORY Type Description Date Medical History hypertension Medical History asthma Medical History pre-diabetes Medical History anemia Medical History Post CHRISTOS Ref to Rheum [facility] 2-15 keeps rescheduling Medical History Plantar fascial fibromatosis Medical History Obesity, unspecified Surgical History partial hysterectomy Surgical History dilatation and curettage Surgical History Colonoscopy Walker Normal
--- OUTSIDE RECORDS SUMMARY | 2018-03-01 18:48 | XMS REPORT ---
Author Author PERRI NOVAK Organization [facility] Address [address] [place] [address] Care Team Providers Care Business Advisor Name Role Phone PERRI NOVAK Unavailable PROBLEMS Type Condition ICD9-CM Code [id number] Code Onset Dates Condition Status SNOMED Code Problem Iron deficiency anemia, unspecified iron deficiency anemia type D50.9 Active 56068718 Problem Morbid obesity due to excess calories E66.01 Active 203491331 Problem Mild intermittent asthma without complication J45.20 Active 500522858 Problem Hearing loss, bilateral H91.93 Active 81381411 Problem Recurrent acute serous otitis media of left ear H65.05 Active 950435307 Problem Bronchitis J40 Active 13521827 Problem Type 2 diabetes mellitus without complication, without long-term current use of insulin E11.9 Active 018622434 Problem Acute non-recurrent maxillary sinusitis J01.00 Active 89975630 Problem Fibromyalgia M79.7 Active 499280675 Problem Essential hypertension I10 Active 75067369 Problem History of hysterectomy Z90.710 Active 965189702 Problem Anemia D64.9 Active 323420242 Problem Positive CHRISTOS (antinuclear antibody) R76.8 Active 891190050 Problem Elevated liver enzymes R74.8 Active 059665863 ALLERGIES Unknown Allergies SOCIAL HISTORY No smoking Hx information available PLAN OF CARE VITAL SIGNS MEDICATIONS Unknown Medications RESULTS No Results PROCEDURES No Known procedures IMMUNIZATIONS No Known Immunizations
--- OUTSIDE RECORDS SUMMARY | 2018-03-01 18:48 | XMS REPORT ---
Author Author SEGUNDO JEFFERS Organization [employer] Address Unknown Phone Unavailable Care Team Providers Care Feather Renovator Name Role Phone SEGUNDO JEFFERS CP Unavailable Allergies No Known Allergies Problems Problem Type Condition Code Onset Dates Condition Status Problem Essential hypertension I10 Active Problem Positive CHRISTOS (antinuclear antibody) R76.8 Active Problem Nausea R11.0 Active Medications No Known Medications Results No Known Results Summary Purpose [employer] Submission
--- OUTSIDE RECORDS SUMMARY | 2018-03-01 18:48 | XMS REPORT ---
Author Author PERRI NOVAK Organization [facility] Address [address] [place] [address] Care Team Providers Care Hot Roll Laminator Name Role Phone PERRI NOVAK Unavailable PROBLEMS Type Condition ICD9-CM Code [id number] Code Onset Dates Condition Status SNOMED Code Problem Recurrent acute serous otitis media of left ear H65.05 Active 479390306 Problem Hearing loss, bilateral H91.93 Active 85590620 Problem Acute non-recurrent maxillary sinusitis J01.00 Active 64795690 Problem Anhedonia R45.84 Active 83679269 Problem Essential hypertension I10 Active 19885004 Problem MCTD (mixed connective tissue disease) M35.1 Active 266802543 Problem Hearing loss of left ear, unspecified hearing loss type H91.92 Active 40064012 Problem Observed sleep apnea G47.30 Active 62767103 Problem Mixed hyperlipidemia E78.2 Active 469411127 Problem Mixed connective tissue disease M35.1 Active 442609414 Problem Bilateral hearing loss, unspecified hearing loss type H91.93 Active 72209513 Problem Elevated liver enzymes R74.8 Active 899645352 Problem Anemia D64.9 Active 419185796 Problem Positive CHRISTOS (antinuclear antibody) R76.8 Active 677207706 Problem History of hysterectomy Z90.710 Active 472398344 Problem Mild intermittent asthma without complication J45.20 Active 967024218 Problem Morbid obesity due to excess calories E66.01 Active 846059133 Problem Iron deficiency anemia, unspecified iron deficiency anemia type D50.9 Active 35969158 Problem Bronchitis J40 Active 22315323 Problem Type 2 diabetes mellitus without complication, without long-term current use of insulin E11.9 Active 885318488 Problem Fibromyalgia M79.7 Active 652996984 ALLERGIES No Known Allergies SOCIAL HISTORY No smoking Hx information available PLAN OF CARE VITAL SIGNS MEDICATIONS No Known Medications RESULTS No Results PROCEDURES No Known procedures IMMUNIZATIONS No Known Immunizations
--- OUTSIDE RECORDS SUMMARY | 2018-03-01 18:48 | XMS REPORT ---
Author Author PERRI NOVAK Organization [facility] Address [address] [place] [address] Care Team Providers Care Sales Project Coordinator Name Role Phone PERRI NOVAK Unavailable PROBLEMS Type Condition ICD9-CM Code [id number] Code Onset Dates Condition Status SNOMED Code Problem Recurrent acute serous otitis media of left ear H65.05 Active 587251363 Problem Hearing loss, bilateral H91.93 Active 19342366 Problem Acute non-recurrent maxillary sinusitis J01.00 Active 80566225 Problem Anhedonia R45.84 Active 20445397 Problem Essential hypertension I10 Active 13401221 Problem MCTD (mixed connective tissue disease) M35.1 Active 014729322 Problem Hearing loss of left ear, unspecified hearing loss type H91.92 Active 13852814 Problem Observed sleep apnea G47.30 Active 18966308 Problem Mixed hyperlipidemia E78.2 Active 997850822 Problem Mixed connective tissue disease M35.1 Active 271242098 Problem Bilateral hearing loss, unspecified hearing loss type H91.93 Active 46004413 Problem Elevated liver enzymes R74.8 Active 470079845 Problem Anemia D64.9 Active 620794419 Problem Positive CHRISTOS (antinuclear antibody) R76.8 Active 548889359 Problem History of hysterectomy Z90.710 Active 748343180 Problem Mild intermittent asthma without complication J45.20 Active 343310300 Problem Morbid obesity due to excess calories E66.01 Active 905792172 Problem Iron deficiency anemia, unspecified iron deficiency anemia type D50.9 Active 69167350 Problem Bronchitis J40 Active 74958400 Problem Type 2 diabetes mellitus without complication, without long-term current use of insulin E11.9 Active 141922276 Problem Fibromyalgia M79.7 Active 360837191 ALLERGIES No Information SOCIAL HISTORY Never Assessed PLAN OF CARE VITAL SIGNS MEDICATIONS No Known Medications RESULTS No Results PROCEDURES No Known procedures IMMUNIZATIONS No Known Immunizations MEDICAL (GENERAL) HISTORY Type Description Date Medical History hypertension Medical History asthma Medical History pre-diabetes Medical History anemia Medical History Post CHRISTOS Ref to Rheum [facility] 2-15 keeps rescheduling Medical History Plantar fascial fibromatosis Medical History Obesity, unspecified Surgical History partial hysterectomy Surgical History dilatation and curettage Surgical History Colonoscopy Aaron Normal
--- OUTSIDE RECORDS SUMMARY | 2018-03-01 18:48 | XMS REPORT ---
Author Author TONI HERNANDES Organization [facility] Address [address] [place] [address] Care Team Providers Care Meat Smoker Name Role Phone ALAINA HERNANDESIE Unavailable PROBLEMS Type Condition ICD9-CM Code [id number] Code Onset Dates Condition Status SNOMED Code Problem Recurrent acute serous otitis media of left ear H65.05 Active 476726182 Problem Hearing loss, bilateral H91.93 Active 90738557 Problem Acute non-recurrent maxillary sinusitis J01.00 Active 68216393 Problem Anhedonia R45.84 Active 61360921 Problem Essential hypertension I10 Active 67925953 Problem MCTD (mixed connective tissue disease) M35.1 Active 634582847 Problem Hearing loss of left ear, unspecified hearing loss type H91.92 Active 69245772 Problem Observed sleep apnea G47.30 Active 15439564 Problem Mixed hyperlipidemia E78.2 Active 514904889 Problem Mixed connective tissue disease M35.1 Active 216494698 Problem Bilateral hearing loss, unspecified hearing loss type H91.93 Active 82054237 Problem Elevated liver enzymes R74.8 Active 734704425 Problem Anemia D64.9 Active 512710903 Problem Positive CHRISTOS (antinuclear antibody) R76.8 Active 552550678 Problem History of hysterectomy Z90.710 Active 545346865 Problem Mild intermittent asthma without complication J45.20 Active 370993907 Problem Morbid obesity due to excess calories E66.01 Active 373968309 Problem Iron deficiency anemia, unspecified iron deficiency anemia type D50.9 Active 55007055 Problem Bronchitis J40 Active 24180589 Problem Type 2 diabetes mellitus without complication, without long-term current use of insulin E11.9 Active 473336243 Problem Fibromyalgia M79.7 Active 124358168 ALLERGIES Substance Reaction Event Type Date Status Sulfamethoxazole-Trimethoprim rash Drug Allergy February, Active Remeron Unknown Drug Allergy February, Active Naproxen swelling Drug Allergy February, Active Enalapril Maleate Unknown Drug Allergy February, Active Dicyclomine HCl Unknown Drug Allergy February, Active BuSpar Unknown Drug Allergy February, Active SOCIAL HISTORY Never Assessed PLAN OF CARE Activity Details Follow Up 2 Months Reason: VITAL SIGNS Height 65 in 2017-02-26 Weight 315 lbs 2017-02-26 Temperature 98.1 degrees Fahrenheit 2017-02-26 Heart Rate 76 bpm 2017-02-26 Respiratory Rate 18 2017-02-26 BMI 52.41 kg/m2 2017-02-26 Blood pressure systolic 130 mmHg 2017-02-26 Blood pressure diastolic 80 mmHg 2017-02-26 MEDICATIONS Medication Instructions Dosage Frequency Start Date End Date Duration Status Plaquenil 200 mg Orally twice a day 1 tablet with food or milk 12h February, May, 90 days Active Blood Glucose Monitor System glucometer test blood sugar Dec, Active Flovent HFA 110 MCG/ACT 2 puffs by Inhalation route 2 times per day Jun, 90 days Active RESULTS Name Result Date Reference Range ESR/SED RATE 2017-02-26 Sedimentation Rate-Westergren 30 0-32 CRP 2017-02-26 C-Reactive Protein, Quant 12.9 0.0-4.9 CMP 2017-02-26 Glucose, Serum 283 65-99 BUN 10 6-20 Creatinine, Serum 0.59 0.57-1.00 eGFR If NonAfricn Am 120 >59 eGFR If Africn Am 138 >59 BUN/Creatinine Ratio 17 9-23 Sodium, Serum 137 134-144 Potassium, Serum 4.2 3.5-5.2 Chloride, Serum 97 96-106 Carbon Dioxide, Total 22 18-29 Calcium, Serum 8.8 8.7-10.2 Protein, Total, Serum 6.5 6.0-8.5 Albumin, Serum 3.7 3.5-5.5 Globulin, Total 2.8 1.5-4.5 A/G Ratio 1.3 1.2-2.2 Bilirubin, Total 0.4 0.0-1.2 Alkaline Phosphatase, S 101 39-117 AST (SGOT) 33 0-40 ALT (SGPT) 44 0-32 CBC w/ MANUAL DIFF 2017-02-26 WBC 8.5 3.4-10.8 RBC 4.78 3.77-5.28 Hemoglobin 12.2 11.1-15.9 Hematocrit 38.5 34.0-46.6 MCV 81 79-97 MCH 25.5 26.6-33.0 MCHC 31.7 31.5-35.7 RDW 14.5 12.3-15.4 Platelets 238 150-379 Neutrophils 52 Lymphs 47 Monocytes 1 Eos 0 Basos 0 Neutrophils Absolute 4.4 1.4-7.0 Lymphs (Absolute) 4.0 0.7-3.1 Monocytes(Absolute) 0.1 0.1-0.9 Eos (Absolute Value) 0.0 0.0-0.4 Baso(Absolute) 0.0 0.0-0.2 Differential Comment Note: RBC Comment Note: Normal Platelet Comment Note: Adequate PROCEDURES Procedure Date Ordered Result Body Site RBC SED RATE, AUTOMATED February 26, 2017 C-REACTIVE PROTEIN February 26, 2017 MANUAL CELL COUNT, EACH February 26, 2017 COMPREHEN METABOLIC PANEL February 26, 2017 VENIPUNCT, ROUTINE* February 26, 2017 IMMUNIZATIONS No Known Immunizations MEDICAL (GENERAL) HISTORY Type Description Date Medical History hypertension Medical History asthma Medical History pre-diabetes Medical History anemia Medical History Post CHRISTOS Ref to Rheum [facility] 2-15 keeps rescheduling Medical History Plantar fascial fibromatosis Medical History Obesity, unspecified Surgical History partial hysterectomy Surgical History dilatation and curettage Surgical History Colonoscopy Walker Normal
[2018-03-01] MEDS ORDERED: RX-TRAMADOL 50 MG (ULTRAM) TAB PPK#4 PO STA (19:41)
[2018-03-01] MEDS ORDERED: TRAM-42 PO (19:45)
[2018-03-01] MEDS ORDERED: ORPHENADRINE 60 MG/2 ML (NORFLEX) AMP IM ONE (19:45)
[2018-03-01] MEDS ORDERED: KETOROLAC 60 MG/2 ML VIAL IM ONE (19:45)
--- NOTE | 2018-03-01 19:46 | ED Upper Extremity ---
General Chief Complaint: Upper Extremity Stated Complaint: L SHOULDER PAIN Nursing Triage Note: pt presents to er with complaint of left shoulder pain. states the pain started this weekend. pt states shes tore muscles in this should last year. Nursing Sepsis Screen: No Definite Risk Source: patient Exam Limitations: no limitations History of Present Illness Date Seen by Provider: March 01, 2018 Time Seen by Provider: 19:42 Initial Comments to ER with left shoulder pain for the past 2-3 days. No known injury. History of left shoulder injury back in April was told that she "tore something" she states. She was put in a sling given pain medication and the pain resolved. She' s never had any further imaging done. Onset: other Severity: moderate Pain/Injury Location: left shoulder Method of Injury: unknown Modifying Factors: Worse With Movement Allergies and Home Medications Allergies Coded Allergies: Sulfa (Sulfonamide Antibiotics) (Unverified Allergy, Mild, 06/30/09) buspirone HCl (Verified Allergy, Unknown, 02/26/16) mirtazapine (Verified Allergy, Unknown, 02/26/16) naproxen (Verified Allergy, Unknown, 08/20/16) Home Medications Azithromycin 250 Mg Tablet, 250 MG PO DAILY Prescribed by: LIVIA NOVOA on 10/01/172204 Duloxetine HCl 30 Mg Capsule.dr, 30 MG PO DAILY, (Reported) Ferrous Sulfate 325 Mg Tablet, 325 MG PO DAILY, (Reported) Losartan Potassium 25 Mg Tablet, 25 MG PO DAILY, (Reported) Metformin HCl Unknown Strength Tablet, 500 MG PO BID, (Reported) Pregabalin 75 Mg Capsule, 225 MG PO BID, (Reported) Promethazine HCl/Codeine 118 Ml Syrup, 5 ML PO Q6H PRN for COUGH Prescribed by: LIVIA NOVOA on 10/01/172204 Patient Home Medication List Home Medication List Reviewed: Yes Constitutional: see HPI EENTM: see HPI Respiratory: no symptoms reported Cardiovascular: no symptoms reported Genitourinary: no symptoms reported Musculoskeletal: see HPI, joint pain Skin: no symptoms reported Psychiatric/Neurological: No Symptoms Reported Past Yjwyryg-Lebzoz-Ubufnu Hx Patient Social History Alcohol Use: Occasionally Uses Recreational Drug Use: No Type Used: Cigarettes Former Smoker, Quit: Aug 21, 2016 Recent Foreign Travel: No Contact w/Someone Who Travel: No Recent Infectious Disease Expo: No Recent Hopitalizations: No Immunizations Up To Date Tetanus Booster (TDap): Unknown Date of Pneumonia Vaccine: May 26, 2013 Seasonal Allergies Seasonal Allergies: Yes Past Medical History Surgeries: Yes (D&C x3) Hysterectomy Respiratory: Yes Asthma Cardiac: Yes Hypertension Neurological: No Reproductive Disorders: No Female Reproductive Disorders: Menstrual Problems, Ovarian Cyst TAIL TRIMMER History: Hysterectomy Sexually Transmitted Disease: No HIV/AIDS: No Genitourinary: No Gastrointestinal: Yes (BLOOD IN STOOLS) Gastroesophageal Reflux Musculoskeletal: Yes (UNDIFFERENTIATED CONNECTIVE TISSUE DISEASE) Arthritis, Fibromyalgia, Rheumatoid Arthritis Endocrine: Yes Diabetes, Non-Insulin dep Loss of Vision: Bilateral Hearing Impairment: Deaf Cancer: No Psychosocial: Yes Anxiety, PTSD, Bipolar, Depression Integumentary: No Blood Disorders: No (ANEMIA) Adverse Reaction/Blood Tranf: No (HAS HAD BLOOD WITH NO REACTION) Family Medical History Alcoholism 03 MOTHER Cancer 09 SISTER (Cervical or ovarian) Cancer of colon Congenital heart disease 03 FATHER Congestive heart failure 03 FATHER Family history: Allergy 03 MOTHER Family history: Arthritis Family history: Asthma 09 BROTHER Family history: Cardiovascular disease Family history: Diabetes mellitus 03 MOTHER Family history: Hypertension 03 MOTHER Family history: Thyroid disorder Heart disease History of - anemia 03 MOTHER History of drug abuse 03 FATHER 03 MOTHER Hypercholesterolemia 03 MOTHER Kidney disease Myocardial infarction Psychotic disorder Seizure disorder Stroke No Family History of: Abdominal aortic aneurysm Dyllan's disease Aphasia Cataract Chest pain Cystic fibrosis Dementia Dysphagia Family history: Alzheimer's disease Family history: Breast disease Family history: Coronary thrombosis Family history: Gastrointestinal disease Family history: Glaucoma Family history: Osteoporosis Headache Hearing loss Hereditary disease History of - respiratory disease Human immunodeficiency virus (HIV) seropositivity Infertile Malignant neoplasm of lung Parkinson's disease Prostate cancer Tuberculosis Visual impairment Physical Exam Vital Signs Vital Signs - First Documented 03/01/18 19:05 Pulse 84 Resp 20 B/P (MAP) 142/95 (111) Pulse Ox 96 O2 Delivery Room Air Capillary Refill : Less Than 3 Seconds General Appearance: WD/WN, no apparent distress HEENT: PERRL/EOMI, normal ENT inspection Neck: non-tender, full range of motion Respiratory: normal breath sounds, no respiratory distress, no accessory muscle use Gastrointestinal: normal bowel sounds, non tender Shoulder: normal inspection, non-tender, pain, soft tissue tenderness (Over the medial border of the scapula) Elbow/Forearm: normal inspection, non-tender Wrist: Yes normal inspection, Yes non-tender Hand: normal inspection, non-tender Neurologic/Tendon: normal sensation, normal motor functions Neurologic/Psychiatric: alert, normal mood/affect Skin: normal color, warm/dry Progress/Results/Core Measures Results/Orders My Orders Orders - LIVIA NOVOA APRN Ketorolac Injection (Toradol Injection) (03/01/18 19:45) Orphenadrine Injection (Norflex Injectio (03/01/18 19:45) Rx-Tramadol Hcl (Rx-Ultram) (03/01/18 19:41) Vital Signs/I&O 03/01/18 19:05 Pulse 84 Resp 20 B/P (MAP) 142/95 (111) Pulse Ox 96 O2 Delivery Room Air Blood Pressure Mean: 111 Departure Impression Primary Impression: Internal derangement of left shoulder Disposition: HOME, SELF-CARE Condition: Stable Departure-Patient Inst. Decision time for Depature: 19:44 Referrals: [facility] (PCP/Family) Primary Care Physician Patient Instructions: Shoulder Pain (DC) Add. Discharge Instructions: 1. You need to follow-up with your primary care provider or an orthopedic surgeon for further evaluation of your left shoulder pain which would likely include an MRI. Keep the arm in the sling as needed for comfort. When you're able to keep the arm out of the sling then you may stop using it. All discharge instructions reviewed with patient and/or family. Voiced understanding. Scripts Tramadol HCl (Ultram) 50 Mg Tablet 50 MG PO Q6H PRN for PAIN-MODERATE, #14 TAB Prov: LIVIA NOVOA APRN 03/01/18 LIVIA NOVOA APRN March 01, 2018 19:46
[2018-03-01 20:20] VITALS: BP 142/95
== END 2018-03-01 20:20 | disposition home or self-care (01) ==
LOC: EDUNIT# 18:38 → ER 18:40
DX: M24.112 Other articular cartilage disorders, left shoulder (principal); K21.9 Gastro-esophageal reflux disease without esophagitis; E11.9 Type 2 diabetes mellitus without complications; I10 Essential (primary) hypertension; F41.9 Anxiety disorder, unspecified; F43.10 Post-traumatic stress disorder, unspecified; F31.9 Bipolar disorder, unspecified; F32.9 Major depressive disorder, single episode, unspecified; D64.9 Anemia, unspecified; Z87.42 Personal history of other diseases of the female genital tract; Z90.710 Acquired absence of both cervix and uterus; Z87.891 Personal history of nicotine dependence; Z79.84 Long term (current) use of oral hypoglycemic drugs; Z88.2 Allergy status to sulfonamides; Z88.8 Allergy status to other drugs, medicaments and biological substances; Z88.6 Allergy status to analgesic agent
CPT/HCPCS: 96372; 99284

== ENCOUNTER 2021-05-21 22:56 | Emergency (ER) | payer MEDICAID ==
[~2021-05-21] VITALS: Ht 165 cm; Wt 123.7 kg
[~2021-05-21 22:56] MED LIST changes: -CODE118S2 PO; +CODE118S4 PO; -LOSA25TA21 PO; +LOSA25TA41 PO; +METF-397 PO; +METF-865; -METF500T5 PO; -METF500T8; +TRAM-42 PO
[2021-05-21 23:00] VITALS: BP 154/88
[2021-05-21] MEDS ORDERED: ACHD5005 PO (23:21)
[2021-05-21] MEDS ORDERED: PENI500T PO (23:21)
--- NOTE | 2021-05-21 23:23 | ED EENT ---
History of Present Illness General Chief Complaint: Dental Problems/Pain Stated Complaint: DENTAL ABSCESS/FEVER Nursing Triage Note: broken left upper tooth, swelling/pain x4 days. Source: patient Exam Limitations: no limitations History of Present Illness Date Seen by Provider: May 21, 2021 Time Seen by Provider: 23:05 Initial Comments Patient is a 40-year-old female who presents to the emergency department with a chief complaint of dental abscess. Patient states that she has had dental swelling and pain and fevers and chills for the last several days. She states she has been taking a little [id number]-[id number] Advil dual strength for pain. She has called [facility] and has a follow-up dental appointment for this . She denies any other chronic medical conditions. She does not take any medicines on a daily basis. She is a smoker. No cough, shortness of breath or congestion. No direct Covid exposures. All other review of systems reviewed and negative except as stated. Timing/Duration: gradual Location: dental Associated Symptoms: fever Allergies and Home Medications Allergies Coded Allergies: Sulfa (Sulfonamide Antibiotics) (Unverified Allergy, Mild, 06/30/09) buspirone HCl (Verified Allergy, Unknown, 02/26/16) mirtazapine (Verified Allergy, Unknown, 02/26/16) naproxen (Verified Allergy, Unknown, 08/20/16) Home Medications Hydrocodone/Acetaminophen 1 Each Tablet, 1 TAB PO Q6H PRN for PAIN-MODERATE (5- 7) Prescribed by: BERTA ORNELAS on 05/21/212321 Penicillin V Potassium 500 Mg Tablet, 500 MG PO QID Prescribed by: BERTA ORNELAS on 05/21/21 2321 Patient Home Medication List Home Medication List Reviewed: Yes Review of Systems Review of Systems Constitutional: see HPI Eyes: No Symptoms Reported Ears: Pain (left) Nose: no symptoms reported Mouth: pain (left upper dental pain) Throat: no symptoms reported Respiratory: no symptoms reported Cardiovascular: no symptoms reported Gastrointestinal: no symptoms reported Musculoskeletal: no symptoms reported Skin: no symptoms reported Neurological: Headache All Other Systems Reviewed Negative Unless Noted: Yes Past Lhqfxiu-Wlozle-Epdask Hx Patient Social History Tobacco Use?: Yes Tobacco type used: Cigarettes Use of E-Cig and/or Vaping dev: No Substance use?: No Alcohol Use?: No Pt feels they are or have been: No Immunizations Up To Date Tetanus Booster (TDap): Unknown Seasonal Allergies Seasonal Allergies: Yes Past Medical History Surgery/Hospitalization HX: hysterectomy, neck, d&c, anemia, dm, autoimmune disorder. 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 Sexually Transmitted Disease: No HIV/AIDS: No Genitourinary: No Gastrointestinal: Yes (BLOOD IN STOOLS) Gastroesophageal Reflux Musculoskeletal: Yes (UNDIFFERENTIATED CONNECTIVE TISSUE DISEASE) Arthritis, Fibromyalgia, Rheumatoid Arthritis Endocrine: Yes Diabetes, Non-Insulin dep Loss of Vision: Bilateral Hearing Impairment: Deaf Cancer: No Psychosocial: Yes Anxiety, PTSD, Bipolar, Depression Integumentary: No Blood Disorders: No (ANEMIA) Adverse Reaction/Blood Tranf: No (HAS HAD BLOOD WITH NO REACTION) Family Medical History Alcoholism 03 MOTHER Cancer 09 SISTER (Cervical or ovarian) Cancer of colon Congenital heart disease 03 FATHER Congestive heart failure 03 FATHER Family history: Allergy 03 MOTHER Family history: Arthritis Family history: Asthma 09 BROTHER Family history: Cardiovascular disease Family history: Diabetes mellitus 03 MOTHER Family history: Hypertension 03 MOTHER Family history: Thyroid disorder Heart disease History of - anemia 03 MOTHER History of drug abuse 03 FATHER 03 MOTHER Hypercholesterolemia 03 MOTHER Kidney disease Myocardial infarction Psychotic disorder Seizure disorder Stroke No Family History of: Abdominal aortic aneurysm Beason's disease Aphasia Cataract Chest pain Cystic fibrosis Dementia Dysphagia Family history: Alzheimer's disease Family history: Breast disease Family history: Coronary thrombosis Family history: Gastrointestinal disease Family history: Glaucoma Family history: Osteoporosis Headache Hearing loss Hereditary disease History of - respiratory disease Human immunodeficiency virus (HIV) seropositivity Infertile Malignant neoplasm of lung Parkinson's disease Prostate cancer Tuberculosis Visual impairment Physical Exam Vital Signs Vital Signs - First Documented 05/21/21 23:00 Temp 36.9 Pulse 90 Resp 18 B/P (MAP) 154/88 (110) Pulse Ox 98 O2 Delivery Room Air Height, Weight, BMI Height: 5'4.00" Weight: 280lbs. 0.0oz. 127.190840gl; 45.00 BMI Method:Stated General Appearance: WD/WN, no apparent distress Eyes: bilateral eye normal inspection, bilateral eye PERRL, bilateral eye EOMI Ears: bilateral ear TM normal Mouth/Throat: pharynx normal, other (Patient has significant swelling/abscess formation left upper premolar. Very tender to palpation no active drainage. No submandibular or preauricular lymphadenopathy is noted) Neck: full range of motion, supple Cardiovascular: regular rate, rhythm Respiratory: lungs clear, normal breath sounds, no respiratory distress, no accessory muscle use Neurologic/Psychiatric: alert, normal mood/affect, oriented x 3 Skin: normal color, warm/dry Procedures/Interventions I&D : Site: left upper tooth Blade Size: 11 Progress good return of whitish yellow pus Progress/Results/Core Measures Results/Orders My Orders Orders - BERTA ORNELAS MD Lidocaine 1% Inj 20 Ml (Xylocaine 1% Inj (05/21/21 23:30) Rx-Hydrocodone/Apap 5-325 Mg (Rx-Vicodin (05/21/21 23:30) Penicillin Vk Tablet (Veetid Tablet) (05/21/21 23:30) Medications Given in ED Current Medications Medications Dose Ordered Sig/Germania Route Start Time Stop Time Status Last Admin Dose Admin Acetaminophen/ Hydrocodone Bitart 1 ea Q6H PRN PO 05/21/21 23:30 05/21/21 23:34 1 EA Lidocaine HCl 20 ml ONCE ONCE INJ 05/21/21 23:30 05/21/21 23:31 DC 05/21/21 23:30 20 ML Penicillin V Potassium 500 mg ONCE ONCE PO 05/21/21 23:30 05/21/21 23:31 DC 05/21/21 23:34 500 MG Vital Signs/I&O 05/21/21 23:00 Temp 36.9 Pulse 90 Resp 18 B/P (MAP) 154/88 (110) Pulse Ox 98 O2 Delivery Room Air Blood Pressure Mean: 110 Departure Impression Primary Impression: Dental abscess Disposition: 01 HOME, SELF-CARE Condition: Stable Departure-Patient Inst. Decision time for Depature: 23:20 Referrals: [facility] (PCP/Family) Primary Care Physician Patient Instructions: Tooth Abscess ED Add. Discharge Instructions: Rinse and spit 2-3 times daily with a good dental cleaning mouthwash. Omega your teeth often. Follow-up with your dentist as scheduled. Take the antibiotics until they are gone a total of 10 days. Continue the ibuprofen with food as needed for pain. I have also given your prescription for pain medications, hydrocodone. Do not drive and take this medication. Return to the emergency room for any increased swelling especially with high fevers, redness or any other emergent concerning symptoms. Scripts Hydrocodone/Acetaminophen (Hydrocodone-Acetamin 5-325 mg) 1 Each Tablet 1 TAB PO Q6H PRN for PAIN-MODERATE (5-7), #8 TAB Prov: BERTA ORNELAS MD 05/21/21 Penicillin V Potassium (Penicillin V Potassium) 500 Mg Tablet 500 MG PO QID, #40 TAB Prov: BERTA ORNELAS MD 05/21/21 BERTA ORNELAS MD May 21, 2021 23:23
[2021-05-21] MEDS ORDERED: PENICILLIN V K 250 MG TAB PO ONE (23:30)
[2021-05-21] MEDS ORDERED: LIDOCAINE 1% INJ 20 ML 20 ML VIAL INJ ONE (23:30)
== END 2021-05-22 00:02 | disposition home or self-care (01) ==
LOC: EDUNIT# 22:56 → ER 22:58
DX: K04.7 Periapical abscess without sinus (principal); J45.909 Unspecified asthma, uncomplicated; I10 Essential (primary) hypertension; E11.9 Type 2 diabetes mellitus without complications; F17.210 Nicotine dependence, cigarettes, uncomplicated
CPT/HCPCS: 99284

== ENCOUNTER 2021-06-10 17:59 | Emergency (ER) | payer MEDICAID ==
[~2021-06-10] VITALS: Ht 162 cm; Wt 127.0 kg
[~2021-06-10 17:59] MED LIST changes: +PENI500T PO
[2021-06-10 18:05] VITALS: BP 138/89
--- NOTE | 2021-06-10 19:08 | ED General ---
General Chief Complaint: COVID19 Suspect/Confirmed Stated Complaint: HEADACHE,VOMITING,FEVER Nursing Triage Note: Pt c/o fever, vomiting, generalized weakness, and headache since yesterday. Source of Information: Patient Exam Limitations: No Limitations History of Present Illness Date Seen by Provider: Jun 10, 2021 Time Seen by Provider: 18:25 Initial Comments Here with report of fever, chills, body aches, weakness, headache, vomiting and overall just not feeling well since yesterday. Started while she was at work yesterday. She went outside and then vomited. She ended up resting but went back to work. She states overnight she was so fatigued that she was even too tired to get out of the bed to go to the bathroom and ended up urinating on herself. She does report some dysuria symptoms. Has not had Covid vaccine because of her autoimmune disorder and she states that she has reactions to flu shot and it makes her sick so she will get the vaccine. She has not taken anything for fever or pain today. Timing/Duration: 1-2 Days, Getting Worse Severity: Moderate Associated Systoms: No Chest Pain, No Cough; Fever/Chills, Headaches, Loss of Appetite, Malaise, Nausea/Vomiting; No Shortness of Air; Weakness Allergies and Home Medications Allergies Coded Allergies: Sulfa (Sulfonamide Antibiotics) (Unverified Allergy, Mild, 06/30/09) buspirone HCl (Verified Allergy, Unknown, 02/26/16) mirtazapine (Verified Allergy, Unknown, 02/26/16) naproxen (Verified Allergy, Unknown, 08/20/16) Patient Home Medication List Home Medication List Reviewed: Yes Hydrocodone/Acetaminophen (Hydrocodone-Acetamin 5-325 mg) 1 Each Tablet, 1 TAB PO Q6H PRN for PAIN-MODERATE (5-7) Prescribed by: BERTA ORNELAS on 05/21/212321 Penicillin V Potassium (Penicillin V Potassium) 500 Mg Tablet, 500 MG PO QID Prescribed by: BERTA ORNELAS on 05/21/212320 Review of Systems Review of Systems Constitutional: see HPI, fever, weakness EENTM: nose congestion; No throat pain Respiratory: No cough, No short of breath Cardiovascular: no symptoms reported Gastrointestinal: No abdominal pain; nausea, vomiting Genitourinary: No discharge; dysuria Musculoskeletal: muscle pain, muscle weakness Skin: no symptoms reported All Other Systems Reviewed Negative Unless Noted: Yes Past Ulumarj-Qptdso-Yfzfzd Hx Patient Social History Tobacco Use?: Yes Substance use?: No Alcohol Use?: No Pt feels they are or have been: No Immunizations Up To Date Tetanus Booster (TDap): Unknown Seasonal Allergies Seasonal Allergies: Yes Past Medical History Surgery/Hospitalization HX: hysterectomy, neck, d&c, anemia, dm, autoimmune disorder. 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 Sexually Transmitted Disease: No HIV/AIDS: No Genitourinary: No Gastrointestinal: Yes (BLOOD IN STOOLS) Gastroesophageal Reflux Musculoskeletal: Yes (UNDIFFERENTIATED CONNECTIVE TISSUE DISEASE) Arthritis, Fibromyalgia, Rheumatoid Arthritis Endocrine: Yes Diabetes, Non-Insulin dep Loss of Vision: Bilateral Hearing Impairment: Deaf Cancer: No Psychosocial: Yes Anxiety, PTSD, Bipolar, Depression Integumentary: No Blood Disorders: No (ANEMIA) Adverse Reaction/Blood Tranf: No (HAS HAD BLOOD WITH NO REACTION) Family Medical History Reviewed Nursing Family Hx Alcoholism 03 MOTHER Cancer 09 SISTER (Cervical or ovarian) Cancer of colon Congenital heart disease 03 FATHER Congestive heart failure 03 FATHER Family history: Allergy 03 MOTHER Family history: Arthritis Family history: Asthma 09 BROTHER Family history: Cardiovascular disease Family history: Diabetes mellitus 03 MOTHER Family history: Hypertension 03 MOTHER Family history: Thyroid disorder Heart disease History of - anemia 03 MOTHER History of drug abuse 03 FATHER 03 MOTHER Hypercholesterolemia 03 MOTHER Kidney disease Myocardial infarction Psychotic disorder Seizure disorder Stroke Physical Exam Vital Signs Vital Signs - First Documented 06/10/21 18:05 Temp 37.2 Pulse 95 Resp 18 B/P (MAP) 138/89 (105) Pulse Ox 98 O2 Delivery Room Air Capillary Refill : Less Than 3 Seconds Height, Weight, BMI Height: 5'4.00" Weight: 280lbs. 0.0oz. 127.428519me; 48.00 BMI Method:Stated General Appearance: No Apparent Distress, Obese HEENT: PERRL/EOMI, Other (Rhinorrhea) Neck: Non Tender, Supple Respiratory: Lungs Clear, Normal Breath Sounds Cardiovascular: No Murmur, Tachycardia Gastrointestinal: Non Tender, Soft Back: Normal Inspection, No CVA Tenderness, No Vertebral Tenderness Extremity: Normal Range of Motion, Non Tender, No Calf Tenderness Neurologic/Psychiatric: Alert, Oriented x3 Skin: Normal Color, Warm/Dry Progress/Results/Core Measures Suspected Sepsis SIRS Temperature: Pulse: 95 Respiratory Rate: 18 Blood Pressure 138 /89 Mean: 105 Results/Orders Lab Results Laboratory Tests Test 06/10/21 18:13 06/10/21 19:29 06/10/21 20:23 Range/Units SARS-CoV-2 RNA (RT-PCR) Not Detected Not Detecte Urine Color YELLOW Urine Clarity TURBID Urine pH 6.0 5-9 Urine Specific [place] <=1.005 1.016-1.022 Urine Protein NEGATIVE NEGATIVE Urine Glucose (UA) 3+ H NEGATIVE Urine Ketones NEGATIVE NEGATIVE Urine Nitrite NEGATIVE NEGATIVE Urine Bilirubin NEGATIVE NEGATIVE Urine Urobilinogen 1.0 < = 1.0 MG/DL Urine Leukocyte Esterase 1+ H NEGATIVE Urine RBC (Auto) TRACE-I NEGATIVE Urine RBC 0-2 /HPF Urine WBC 25-50 H /HPF Urine Crystals PRESENT H /LPF Urine Amorphous Sediment RARE AILIN URATES H /LPF Urine Bacteria FEW H /HPF Urine Casts NONE /LPF Urine Mucus NEGATIVE /LPF Urine Culture Indicated YES Glucometer 375 H 70-110 MG/DL My Orders Orders - BISMARK MERAZ MD Ua Culture If Indicated (06/10/21 18:48) Urine Culture (06/10/21 19:29) Ondansetron Oral Dissolve Tab (Zofran (06/10/21 20:29) Cephalexin Capsule (Keflex Capsule) (06/10/21 20:29) Vital Signs/I&O 06/10/21 18:05 Temp 37.2 Pulse 95 Resp 18 B/P (MAP) 138/89 (105) Pulse Ox 98 O2 Delivery Room Air Capillary Refill : Less Than 3 Seconds Blood Pressure Mean: 105 Progress Note : Progress Note Seen and evaluated. Covid testing and UA ordered. Monitor patient. 2030: Covid negative. UA positive. Patient still has some nausea. We will initiate cephalexin and give ondansetron now. Fingerstick blood sugar 375. Patient has known diabetes but does not take any medicines. She knows she needs to follow- up. She states that this is her typical blood sugar. I did offer further labs and evaluation which she has declined currently. We did discuss the importance of blood sugar management including risk of early disease of the eyes, brain, heart, kidneys and extremities. She verbalized understanding and states that she will follow-up. Patient discharged home with return precautions. Patient verbalized understanding of instructions and agreement with plan. Encouraged to come back for any concerns. Departure Impression Primary Impression: Urinary tract infection Qualified Codes: N30.00 - Acute cystitis without hematuria Additional Impressions: Nausea and vomiting Qualified Codes: R11.2 - Nausea with vomiting, unspecified Uncontrolled diabetes mellitus with hyperglycemia Qualified Codes: E11.65 - Type 2 diabetes mellitus with hyperglycemia Disposition: HOME, SELF-CARE Condition: Stable Departure-Patient Inst. Decision time for Depature: 20:34 Referrals: [facility] [place] (PCP/Family) Primary Care Physician Patient Instructions: High Blood Sugar, Adult, Nausea and Vomiting, Adult ED, Urinary Tract Infections in Adults Add. Discharge Instructions: All discharge instructions reviewed with patient and/or family. Voiced understan guillermina. Take medications as directed. It is very important that you follow-up with your doctor for recheck and further evaluation and to discuss your diabetes management. Call the clinic tomorrow morning or Friday for CHRIS appointment. Drink plenty of nonsugary fluids. Minimize sugar and carbohydrates in your diet. It is very important that you get control of your blood sugars as this will have long-term adverse effects on your body. Return for worse pain, fever, vomiting, weakness, breathing problems or other concerns as needed. Scripts Ondansetron (Ondansetron Odt) 4 Mg Tab.rapdis 4 MG PO Q6H PRN for NAUSEA/VOMITING, #12 TAB 0 Refills Prov: BISMARK MERAZ MD 06/10/21 Cephalexin (Cephalexin) 500 Mg Tablet 500 MG PO BID for 5 Days, #10 TAB 0 Refills Prov: BISMARK MERAZ MD 06/10/21 Work/School Note: Work Release Form Date Seen in the Emergency Department: Jun 10, 2021 Return to Work: Jun 12, 2021 Restrictions: No Restrictions BISMARK MERAZ MD Jun 10, 2021 19:08
[2021-06-10 19:39] LABS: BILIRUBIN,URINE NEGATIVE (NEGATIVE); CLARITY,URINE TURBID; COLOR,URINE YELLOW; GLUCOSE, URINE (UA) 3+ (NEGATIVE); KETONES,URINE NEGATIVE (NEGATIVE); LEUKOCYTE ESTERASE ,URINE 1+ (NEGATIVE); NITRITE,URINE NEGATIVE (NEGATIVE); PROTEIN,URINE NEGATIVE (NEGATIVE)
[2021-06-10 20:01] LABS: RBC,URINE 0-2 /HPF; WBC,URINE 25-50 /HPF
[2021-06-10 20:02] LABS: AMORPHOUS SEDIMENT,UR RARE AMOR URATES /LPF; BACTERIA,URINE FEW /HPF
[2021-06-10] MEDS ORDERED: CEPHALEXIN 250 MG (KEFLEX) CAP PO STA (20:29)
[2021-06-10] MEDS ORDERED: ONDANSETRON 4 MG (ZOFRAN) ORAL DISSOLVE TAB SL STA (20:29)
[2021-06-10] MEDS ORDERED: ONDA4TAB11 PO (20:36)
[2021-06-10] MEDS ORDERED: CEPH500T PO (20:36)
== END 2021-06-10 20:51 | disposition home or self-care (01) ==
LOC: EDUNIT# 17:59 → ER 18:01
DX: N39.0 Urinary tract infection, site not specified (principal); R11.2 Nausea with vomiting, unspecified; E11.65 Type 2 diabetes mellitus with hyperglycemia; E66.9 Obesity, unspecified; I10 Essential (primary) hypertension; J45.909 Unspecified asthma, uncomplicated; Z20.822 Contact with and (suspected) exposure to COVID-19; Z68.42 Body mass index [BMI] 45.0-49.9, adult
CPT/HCPCS: 81000; 82947; 87077; 87088; 87186; 87636

== ENCOUNTER 2021-06-12 18:21 | Emergency (ER) | payer MEDICAID ==
[~2021-06-12] VITALS: Ht 162 cm; Wt 127.0 kg
[~2021-06-12 18:21] MED LIST changes: +CEPH500T PO; +ONDA4TAB11 PO
--- NOTE | 2021-06-12 18:57 | ED General ---
General Stated Complaint: NAUSEA, VOMITING, FEVER, STOMACH PAIN, BACK PAIN Source of Information: Patient Exam Limitations: No Limitations History of Present Illness Date Seen by Provider: Jun 12, 2021 Time Seen by Provider: 18:56 Initial Comments To ER with nausea vomiting poor appetite for about 4 days. She was seen here just a few days ago for the same and diagnosed with urinary tract infection. Urinalysis grew out E. coli and she was empirically given Keflex. Denies much improvement. Now has left flank pain. Timing/Duration: 3-4 Days Severity: Moderate Associated Systoms: Nausea/Vomiting Allergies and Home Medications Allergies Coded Allergies: Sulfa (Sulfonamide Antibiotics) (Unverified Allergy, Mild, 06/30/09) buspirone HCl (Verified Allergy, Unknown, 02/26/16) mirtazapine (Verified Allergy, Unknown, 02/26/16) naproxen (Verified Allergy, Unknown, 08/20/16) Patient Home Medication List Home Medication List Reviewed: Yes Cephalexin (Cephalexin) 500 Mg Tablet, 500 MG PO BID Prescribed by: BISMARK MERAZ on 06/10/212035 Hydrocodone/Acetaminophen (Hydrocodone-Acetamin 5-325 mg) 1 Each Tablet, 1 TAB PO Q6H PRN for PAIN-MODERATE (5-7) Prescribed by: BERTA ORNELAS on 05/21/212321 Ondansetron (Ondansetron Odt) 4 Mg Tab.rapdis, 4 MG PO Q6H PRN for NAUSEA/VOMITING Prescribed by: BISMARK MERAZ on 06/10/212035 Penicillin V Potassium (Penicillin V Potassium) 500 Mg Tablet, 500 MG PO QID Prescribed by: BERTA ORNELAS on 05/21/212320 Review of Systems Review of Systems Constitutional: see HPI EENTM: see HPI Respiratory: no symptoms reported Cardiovascular: no symptoms reported Gastrointestinal: nausea Genitourinary: no symptoms reported Musculoskeletal: no symptoms reported Skin: no symptoms reported Psychiatric/Neurological: No Symptoms Reported Hematologic/Lymphatic: No Symptoms Reported Immunological/Allergic: no symptoms reported Past Djnfqmv-Itpzzn-Nrzkxk Hx Immunizations Up To Date Tetanus Booster (TDap): Unknown Seasonal Allergies Seasonal Allergies: Yes Past Medical History Surgery/Hospitalization HX: hysterectomy, neck, d&c, anemia, dm, autoimmune disorder. 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 Sexually Transmitted Disease: No HIV/AIDS: No Genitourinary: No Gastrointestinal: Yes (BLOOD IN STOOLS) Gastroesophageal Reflux Musculoskeletal: Yes (UNDIFFERENTIATED CONNECTIVE TISSUE DISEASE) Arthritis, Fibromyalgia, Rheumatoid Arthritis Endocrine: Yes Diabetes, Non-Insulin dep Loss of Vision: Bilateral Hearing Impairment: Deaf Cancer: No Psychosocial: Yes Anxiety, PTSD, Bipolar, Depression Integumentary: No Blood Disorders: No (ANEMIA) Adverse Reaction/Blood Tranf: No (HAS HAD BLOOD WITH NO REACTION) Family Medical History Alcoholism 03 MOTHER Cancer 09 SISTER (Cervical or ovarian) Cancer of colon Congenital heart disease 03 FATHER Congestive heart failure 03 FATHER Family history: Allergy 03 MOTHER Family history: Arthritis Family history: Asthma 09 BROTHER Family history: Cardiovascular disease Family history: Diabetes mellitus 03 MOTHER Family history: Hypertension 03 MOTHER Family history: Thyroid disorder Heart disease History of - anemia 03 MOTHER History of drug abuse 03 FATHER 03 MOTHER Hypercholesterolemia 03 MOTHER Kidney disease Myocardial infarction Psychotic disorder Seizure disorder Stroke No Family History of: Abdominal aortic aneurysm Dyllan's disease Aphasia Cataract Chest pain Cystic fibrosis Dementia Dysphagia Family history: Alzheimer's disease Family history: Breast disease Family history: Coronary thrombosis Family history: Gastrointestinal disease Family history: Glaucoma Family history: Osteoporosis Headache Hearing loss Hereditary disease History of - respiratory disease Human immunodeficiency virus (HIV) seropositivity Infertile Malignant neoplasm of lung Parkinson's disease Prostate cancer Tuberculosis Visual impairment Physical Exam Vital Signs Vital Signs - First Documented Capillary Refill : Height, Weight, BMI Height: 5'4.00" Weight: 280lbs. 0.0oz. 127.906141ly; 48.00 BMI Method:Stated General Appearance: No Apparent Distress, WD/WN Eyes: Bilateral Eye Normal Inspection, Bilateral Eye PERRL, Bilateral Eye EOMI Neck: Full Range of Motion, Normal Inspection Respiratory: No Accessory Muscle Use, No Respiratory Distress Cardiovascular: Regular Rate, Rhythm, Normal Peripheral Pulses Gastrointestinal: Normal Bowel Sounds, Non Tender, Soft Extremity: Normal Capillary Refill, Normal Inspection Neurologic/Psychiatric: Alert, Oriented x3 Skin: Normal Color, Warm/Dry Progress/Results/Core Measures Suspected Sepsis SIRS Temperature: Pulse: Respiratory Rate: Laboratory Tests 06/12/21 19:00: White Blood Count 9.9 Blood Pressure / Mean: Laboratory Tests 06/12/21 19:00: Creatinine 0.84, Platelet Count 256, Total Bilirubin 0.7 Results/Orders Lab Results Laboratory Tests Test 06/12/21 19:00 06/12/21 19:54 Range/Units White Blood Count 9.9 4.3-11.0 10^3/uL Red Blood Count 5.67 H 3.80-5.11 10^6/uL Hemoglobin 16.0 11.5-16.0 g/dL Hematocrit 47 35-52 % Mean Corpuscular Volume 83 80-99 fL Mean Corpuscular Hemoglobin 28 25-34 pg Mean Corpuscular Hemoglobin Concent 34 32-36 g/dL Red Cell Distribution Width 12.6 10.0-14.5 % Platelet Count 256 130-400 10^3/uL Mean Platelet Volume 11.5 9.0-12.2 fL Immature Granulocyte % (Auto) 0 % Neutrophils (%) (Auto) 54 42-75 % Lymphocytes (%) (Auto) 36 12-44 % Monocytes (%) (Auto) 7 0-12 % Eosinophils (%) (Auto) 2 0-10 % Basophils (%) (Auto) 0 0-10 % Neutrophils # (Auto) 5.3 1.8-7.8 10^3/uL Lymphocytes # (Auto) 3.6 1.0-4.0 10^3/uL Monocytes # (Auto) 0.7 0.0-1.0 10^3/uL Eosinophils # (Auto) 0.2 0.0-0.3 10^3/uL Basophils # (Auto) 0.0 0.0-0.1 10^3/uL Immature Granulocyte # (Auto) 0.0 0.0-0.1 10^3/uL Sodium Level 134 L 135-145 MMOL/L Potassium Level 3.7 3.6-5.0 MMOL/L Chloride Level 97 L 98-107 MMOL/L Carbon Dioxide Level 26 21-32 MMOL/L Anion Gap 11 5-14 MMOL/L Blood Urea Nitrogen 6 L 7-18 MG/DL Creatinine 0.84 0.60-1.30 MG/DL Estimat Glomerular Filtration Rate 75 BUN/Creatinine Ratio 7 Glucose Level 436 *H 70-105 MG/DL Calcium Level 9.8 8.5-10.1 MG/DL Corrected Calcium 9.8 8.5-10.1 MG/DL Total Bilirubin 0.7 0.1-1.0 MG/DL Aspartate Amino Transf (AST/SGOT) 38 H 5-34 U/L Alanine Aminotransferase (ALT/SGPT) 48 0-55 U/L Alkaline Phosphatase 116 40-136 U/L Total Protein 7.5 6.4-8.2 GM/DL Albumin 4.0 3.2-4.5 GM/DL Serum Test, Qualitative NEGATIVE NEGATIVE Urine Color YELLOW Urine Clarity CLEAR Urine pH 6.0 5-9 Urine Specific [place] <=1.005 1.016-1.022 Urine Protein NEGATIVE NEGATIVE Urine Glucose (UA) 3+ H NEGATIVE Urine Ketones NEGATIVE NEGATIVE Urine Nitrite NEGATIVE NEGATIVE Urine Bilirubin NEGATIVE NEGATIVE Urine Urobilinogen 0.2 < = 1.0 MG/DL Urine Leukocyte Esterase NEGATIVE NEGATIVE Urine RBC (Auto) NEGATIVE NEGATIVE Urine RBC NONE /HPF Urine WBC 2-5 /HPF Urine Squamous Epithelial Cells 2-5 /HPF Urine Crystals NONE /LPF Urine Bacteria TRACE /HPF Urine Casts NONE /LPF Urine Mucus NEGATIVE /LPF Urine Yeast FEW H /HPF Urine Culture Indicated YES My Orders Orders - LIVIA NOVOA DICE MANAGER Cbc With Automated Diff (06/12/21 18:54) Comprehensive Metabolic Panel (06/12/21 18:54) Ua Culture If Indicated (06/12/21 18:54) Hcg,Qualitative Serum (06/12/21 18:54) Ed Iv/Invasive Line Start (06/12/21 18:54) Ct Abdomen/Pelvis W Wo (06/12/21 18:54) Lactated Ringers (Lr 1000 Ml Iv Solution (06/12/21 19:00) Ketorolac Injection (Toradol Injection) (06/12/21 19:00) Ondansetron Injection (Zofran Injectio (06/12/21 19:00) Insulin (Regular) Human (Novolin R (Per (06/12/21 20:00) Iohexol Injection (Omnipaque 350 Mg/Ml 1 (06/12/21 20:00) Ns (Ivpb) (Sodium Chloride 0.9% Ivpb Bag (06/12/21 20:00) Received Contrast (Hold Metformin- Contr (06/12/21 20:00) Urine Culture (06/12/21 19:54) Fluconazole Tablet (Ed Only) (Diflucan T (06/12/21 20:30) Medications Given in ED Current Medications Medications Dose Ordered Sig/Germania Route Start Time Stop Time Status Last Admin Dose Admin Ketorolac Tromethamine 15 mg ONCE ONCE IVP 06/12/21 19:00 06/12/21 19:01 DC 06/12/21 19:27 15 MG Ondansetron HCl 4 mg ONCE ONCE IVP 06/12/21 19:00 06/12/21 19:01 DC 06/12/21 19:26 4 MG Vital Signs/I&O 06/12/21 06/12/21 18:37 18:37 Temp 37.5 37.0 Pulse 96 96 Resp 20 20 B/P (MAP) 128/115 (119) 128/115 Pulse Ox 98 98 O2 Delivery Room Air Room Air Capillary Refill : Departure Impression Primary Impression: Nausea and vomiting Additional Impressions: GENERAL MALAISE Left flank pain Disposition: HOME, SELF-CARE Condition: Stable Departure-Patient Inst. Decision time for Depature: 20:31 Referrals: [facility] [place] (PCP/Family) Primary Care Physician Patient Instructions: High Blood Sugar, Adult ED Work/School Note: Work Release Form Date Seen in the Emergency Department: Jun 12, 2021 Return to Work: Jun 16, 2021 LIVIA NOVOA APRN Jun 12, 2021 18:57
[2021-06-12] MEDS ORDERED: KETOROLAC 30 MG/ML VIAL IVP ONE (19:00)
[2021-06-12] MEDS ORDERED: ONDANSETRON 4 MG/2 ML (SDV) Z0FRAN IVP ONE (19:00)
[2021-06-12] MEDS ORDERED: LACTATED RINGERS 1,000 ML IV SCH (19:00)
[2021-06-12 19:16] LABS: BASOPHILS % (AUTO) 0 % (0-10); EOSINOPHILS # (AUTO) 0.2 10^3/uL (0.0-0.3); EOSINOPHILS % (AUTO) 2 % (0-10); HEMATOCRIT 47 % (35-52); LYMPHOCYTES # (AUTO) 3.6 10^3/uL (1.0-4.0); LYMPHOCYTES % (AUTO) 36 % (12-44); MEAN CORPUSCULAR HEMOGLOBIN 28 pg (25-34); MEAN CORPUSCULAR HGB CONC 34 g/dL (32-36); MEAN CORPUSCULAR VOLUME 83 fL (80-99); MEAN PLATELET VOLUME 11.5 fL (9.0-12.2); MONOCYTES # (AUTO) 0.7 10^3/uL (0.0-1.0); MONOCYTES % (AUTO) 7 % (0-12); NEUTROPHILS # (AUTO) 5.3 10^3/uL (1.8-7.8); NEUTROPHILS % (AUTO) 54 % (42-75); PLATELET COUNT 256 10^3/uL (130-400); WHITE BLOOD COUNT 9.9 10^3/uL (4.3-11.0)
[2021-06-12 19:45] LABS: BILIRUBIN,TOTAL 0.7 MG/DL (0.1-1.0); CALCIUM 9.8 MG/DL (8.5-10.1); POTASSIUM 3.7 MMOL/L (3.6-5.0); TOTAL PROTEIN 7.5 GM/DL (6.4-8.2)
[2021-06-12 19:59] LABS: BILIRUBIN,URINE NEGATIVE (NEGATIVE); CLARITY,URINE CLEAR; COLOR,URINE YELLOW; GLUCOSE, URINE (UA) 3+ (NEGATIVE); KETONES,URINE NEGATIVE (NEGATIVE); LEUKOCYTE ESTERASE ,URINE NEGATIVE (NEGATIVE); NITRITE,URINE NEGATIVE (NEGATIVE); PROTEIN,URINE NEGATIVE (NEGATIVE)
[2021-06-12] MEDS ORDERED: IOHEXOL 350 MG/ML 100 ML (OMNIPAQUE 350) VIAL IV ONE (20:00)
[2021-06-12] MEDS ORDERED: inSUlin (REGULAR) HUMAN 1 UNIT/0.01 ML (CHARGE PER UNIT) IV ONE (20:00)
[2021-06-12] MEDS ORDERED: NS 100 ML (IVPB) BAG IV ONE (20:00)
[2021-06-12] MEDS ORDERED: HOLD METFORMIN - RECEIVED CONTRAST 20 ML VIAL IV SCH (20:00)
[2021-06-12 20:11] LABS: BACTERIA,URINE TRACE /HPF; YEAST,URINE FEW /HPF
[2021-06-12 20:12] LABS: CREATININE SERUM 0.84 MG/DL (0.60-1.30)
[2021-06-12] MEDS ORDERED: FLUCONAZOLE 150 MG TABLET (ED ONLY) PO ONE (20:30)
--- NOTE | 2021-06-12 20:31 | Diagnostic Imaging Report ---
PROCEDURE: CT abdomen and pelvis with and without contrast. TECHNIQUE: Precontrast acquisitions were acquired through the abdomen and pelvis. Multiple contiguous axial images were obtained through the abdomen and pelvis after the administration of intravenous contrast. Auto Exposure Controls were utilized during the CT exam to meet ALARA standards for radiation dose reduction. INDICATION: Left flank pain. COMPARISON: CT abdomen and pelvis from 05/28/2012. FINDINGS: Lower chest: Scattered calcified pulmonary nodules in the lung bases are compatible with granulomatous infection. Otherwise, the visualized lungs are clear. Peritoneum: No free intraperitoneal air or fluid. Liver and biliary system: Liver is enlarged measuring 23 cm. No features of steatosis. No focal hepatic lesion. The gallbladder is normal. No biliary duct dilation. Spleen and Pancreas: Spleen remains borderline enlarged measuring 14 cm. The pancreas enhances normally without mass lesion or peripancreatic inflammatory changes. Adrenals: Normal. tract: No renal or ureteral stones. The kidneys enhance normally without suspicious mass or obstruction. Urinary bladder is decompressed, limiting evaluation. Hysterectomy. No adnexal mass. GI tract: Stomach is decompressed. No bowel obstruction. No pericolonic inflammatory changes. Normal appendix. Vasculature and Lymph nodes: Normal caliber aorta. No abdominal or pelvic lymphadenopathy. Musculoskeletal: No concerning osseous lesion. IMPRESSION: 1. No urinary tract calculi or features of pyelonephritis. 2. Urinary bladder is decompressed and correlation with urinalysis would be needed to assess for cystitis. 3. Hepatosplenomegaly. Dictated by: Dictated on workstation # [id number]
[2021-06-12] MEDS ORDERED: ORPHENADRINE 60 MG/2 ML (NORFLEX) AMP (ED ONLY) IV ONE (20:45)
[2021-06-12 21:02] VITALS: BP 137/87
== END 2021-06-12 21:02 | disposition home or self-care (01) ==
LOC: EDUNIT# 18:21 → ER 18:25
DX: R11.2 Nausea with vomiting, unspecified (principal); R53.81 Other malaise; R10.9 Unspecified abdominal pain; J45.909 Unspecified asthma, uncomplicated; I10 Essential (primary) hypertension; E11.9 Type 2 diabetes mellitus without complications
CPT/HCPCS: 36415; 74178; 80053; 81000; 84703; 85025; 87077; 87088; 87186

== ENCOUNTER → 2021-08-09 | Outpatient (CLI) | payer SELFPAY | LOC: FNS 18:49 | PROVIDERS: ATTEND Emergency Medicine | DX: Z02.89 Encounter for other administrative examinations (principal) ==

== ENCOUNTER 2022-04-01 02:02 | Emergency (ER) | payer MEDICAID ==
[~2022-04-01] VITALS: Ht 162.5 cm; Wt 114.8 kg
[2022-04-01 03:05] VITALS: BP 153/84
--- NOTE | 2022-04-01 03:09 | ED Cough/URI ---
General Chief Complaint: COVID19 Suspect/Confirmed Stated Complaint: COUGH,LYMPH NODES SORE,CONGESTION Nursing Triage Note: PT ARRIVAL TO ER WITH COMPLAINTS OF SORE THROAT, COUGH, CONGESTION, AND SWOLLEN LYMPH NODES SINCE LAST FRIDAY. PT STATES THAT SYMPTOMS ARE WORSENING. PT WAS NEGATIVE FOR COVID AND STREP FRIDAY AT [facility] PER PATIENT. Source: patient Exam Limitations: no limitations History of Present Illness Date Seen by Provider: Apr 01, 2022 Time Seen by Provider: 02:18 Initial Comments Here with report of upper respiratory infection symptoms for the last 7 days. States that onset last Friday morning, 8 days ago, with sore throat. Also noted cough and ear fullness. Seen at her provider at [facility] on Friday and told she had viral illness. She did have strep and COVID test done at that time which were negative. Was discharged with supportive therapy. She has continued supportive therapy at home without improvement and in fact has worsening cough and congestion. Does complain of sinus fullness and bilateral ear pain. Denies fever or chills. Is diabetic and does report vaginal yeast infection. States her blood sugars usually run in the 300s and she is not on medicines currently. She had more difficulty while on medicine so she stopped that and has been off that for a few years. Recently moved back to [facility]. Timing/Duration: week, getting worse Severity/Quality: moderate, dry cough Prior Episodes/Possible Cause: occasional episodes Modifying Factors: Worse With Activity, Worse With Coughing; Improves With Rest Associated Symptoms: cough, nasal congestion, sinus infection, sore throat Allergies and Home Medications Allergies Coded Allergies: Sulfa (Sulfonamide Antibiotics) (Unverified Allergy, Mild, 06/30/09) buspirone HCl (Verified Allergy, Unknown, 02/26/16) mirtazapine (Verified Allergy, Unknown, 02/26/16) naproxen (Verified Allergy, Unknown, 08/20/16) Patient Home Medication List Home Medication List Reviewed: Yes Cephalexin (Cephalexin) 500 Mg Tablet, 500 MG PO BID Prescribed by: BISMARK MERAZ on 06/10/212035 Hydrocodone/Acetaminophen (Hydrocodone-Acetamin 5-325 mg) 1 Each Tablet, 1 TAB PO Q6H PRN for PAIN-MODERATE (5-7) Prescribed by: BERTA ORNELAS on 8/16/21 2322 Ondansetron (Ondansetron Odt) 4 Mg Tab.rapdis, 4 MG PO Q6H PRN for NAUSEA/VOMITING Prescribed by: BISMARK MERAZ on 06/10/212035 Penicillin V Potassium (Penicillin V Potassium) 500 Mg Tablet, 500 MG PO QID Prescribed by: BERTA ORNELAS on 05/21/21 2321 Review of Systems Review of Systems Constitutional: No chills, No fever EENTM: nose congestion, throat pain Respiratory: cough; No short of breath, No wheezing Cardiovascular: No chest pain, No palpitations Gastrointestinal: No nausea, No vomiting Genitourinary: No dysuria; other (Vaginal yeast infection) : No Skin: No lesions, No rash Past Mdpmvzw-Fmdoiz-Pypnnj Hx Patient Social History Tobacco Use?: Yes Tobacco type used: Cigarettes Smoking Status: Current Everyday Smoker Use of E-Cig and/or Vaping dev: No Substance use?: No Alcohol Use?: No Immunizations Up To Date Tetanus Booster (TDap): Unknown Influenza Vaccine Up-to-Date: No; Not Current Seasonal Allergies Seasonal Allergies: Yes Past Medical History Surgery/Hospitalization HX: 01/23/2019 NECK SURGERY Surgeries: Yes (D&C x3) Hysterectomy Respiratory: Yes Asthma Cardiac: Yes Hypertension Neurological: No Reproductive Disorders: No Female Reproductive Disorders: Menstrual Problems, 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 Sexually Transmitted Disease: No HIV/AIDS: No Genitourinary: No Gastrointestinal: Yes (BLOOD IN STOOLS) Gastroesophageal Reflux Musculoskeletal: Yes (UNDIFFERENTIATED CONNECTIVE TISSUE DISEASE) Arthritis, Fibromyalgia, Rheumatoid Arthritis Endocrine: Yes Diabetes, Non-Insulin dep Loss of Vision: Bilateral Hearing Impairment: Deaf Cancer: No Psychosocial: Yes Anxiety, PTSD, Bipolar, Depression Integumentary: No Blood Disorders: No (ANEMIA) Adverse Reaction/Blood Tranf: No (HAS HAD BLOOD WITH NO REACTION) Family Medical History Reviewed Nursing Family Hx Alcoholism 03 MOTHER Cancer 09 SISTER (Cervical or ovarian) Cancer of colon Congenital heart disease 03 FATHER Congestive heart failure 03 FATHER Family history: Allergy 03 MOTHER Family history: Arthritis Family history: Asthma 09 BROTHER Family history: Cardiovascular disease Family history: Diabetes mellitus 03 MOTHER Family history: Hypertension 03 MOTHER Family history: Thyroid disorder Heart disease History of - anemia 03 MOTHER History of drug abuse 03 FATHER 03 MOTHER Hypercholesterolemia 03 MOTHER Kidney disease Myocardial infarction Psychotic disorder Seizure disorder Stroke Physical Exam Vital Signs - First Documented 04/01/22 02:21 Temp 36.0 Pulse 83 Resp 20 B/P (MAP) 153/84 (107) Pulse Ox 98 O2 Delivery Room Air Capillary Refill : Less Than 3 Seconds Height: 5'4.00" Weight: 280lbs. 0.0oz. 127.058787ty; 43.00 BMI Method:Stated General Appearance: WD/WN, no apparent distress HEENT: PERRL/EOMI, TMs normal, pharynx normal Neck: full range of motion, supple, lymphadenopathy (L) Respiratory: lungs clear, normal breath sounds Cardiovascular: regular rate, rhythm, no murmur Gastrointestinal: non tender, soft Neurologic/Psychiatric: alert, oriented x 3 Skin: normal color, warm/dry Progress/Results/Core Measures Suspected Sepsis SIRS Temperature: Pulse: 83 Respiratory Rate: 20 Blood Pressure 153 /84 Mean: 107 Results/Orders Lab Results Laboratory Tests Test 04/01/22 02:20 04/01/22 03:02 Range/Units Influenza Type A (RT-PCR) Not Detected Not Detecte Influenza Type B (RT-PCR) Not Detected Not Detecte SARS-CoV-2 RNA (RT-PCR) Not Detected Not Detecte Group A Streptococcus Screen NEGATIVE NEGATIVE Glucometer 338 H 70-110 MG/DL My Orders Orders - BISMARK MERAZ MD Rapid Strep A Screen (04/01/22 02:15) Influenza A And B By Pcr (04/01/22 02:15) Covid 19 Inhouse Test (04/01/22 02:15) Accucheck Stat ONCE (04/01/22 03:01) Fluconazole Tablet (Ed Only) (Diflucan T (04/01/22 03:15) Dexamethasone Injection (Decadron Inje (04/01/22 03:15) Azithromycin Tablet (Zithromax Tablet) (04/01/22 03:15) Medications Given in ED Current Medications Medications Dose Ordered Sig/Germania Route Start Time Stop Time Status Last Admin Dose Admin Azithromycin 500 mg ONCE ONCE PO 04/01/22 03:15 04/01/22 03:16 04/01/22 03:11 500 MG Dexamethasone Sodium Phosphate 10 mg ONCE ONCE IM 04/01/22 03:15 04/01/22 03:16 04/01/22 03:11 10 MG Fluconazole 150 mg ONCE ONCE PO 04/01/22 03:15 04/01/22 03:16 04/01/22 03:11 150 MG Vital Signs/I&O 04/01/22 04/01/22 02:21 03:05 Temp 36.0 Pulse 83 81 Resp 20 20 B/P (MAP) 153/84 (107) 153/84 Pulse Ox 98 96 O2 Delivery Room Air Room Air Capillary Refill : Less Than 3 Seconds Blood Pressure Mean: 107 Progress Note : Progress Note Seen and evaluated. Does appear to have findings consistent with sinus infection and upper respiratory infection. Reports vaginal yeast infection. We will go ahead and do strep and COVID test to verify. 0308: Strep is negative and COVID pending. Given her symptoms we will go ahead and treat with Diflucan for the yeast infection as well as azithromycin 500 mg p.o. to start treatment and Decadron 10 mg IM. Monitor patient. 0315: COVID is negative. I did discuss at length with the patient regarding glucose control as her blood sugar is elevated. She is not on medicines by choice currently. I did encourage her to follow back up with her doctor regarding this and did discuss risk and adverse events associated with prolonged hyperglycemia. Patient verbalized understanding. Discharged home with return precautions. Patient verbalized understanding of instructions and agreement with plan. Departure Impression Primary Impression: Sinusitis, acute maxillary Qualified Codes: J01.00 - Acute maxillary sinusitis, unspecified Additional Impressions: Bronchitis Vaginal yeast infection Uncontrolled diabetes mellitus with hyperglycemia Qualified Codes: E11.65 - Type 2 diabetes mellitus with hyperglycemia Disposition: 01 HOME, SELF-CARE Condition: Stable Departure-Patient Inst. Decision time for Depature: 03:17 Referrals: [facility] [place] (PCP/Family) Primary Care Physician Patient Instructions: Vulvovaginal Yeast Infection, Sinusitis, Adult ED, Acute Bronchitis, High Blood Sugar, Adult Add. Discharge Instructions: All discharge instructions reviewed with patient and/or family. Voiced understanding. Follow-up with your doctor for recheck and further evaluation and to discuss your diabetes and management. Take medications as directed. You should initiate wzkv-ojc-[id number] Afrin nasal spray or the generic, 12-hour relief, 2 sprays to each nostril twice daily for 3 days only and then stop. Do not use more than 3 days. You may take Tylenol/acetaminophen 1000 mg every 6-8 hours as needed for pain. Drink plenty of fluids. Return for worse pain, fever, vomiting, weakness, breathing problems or other concerns as needed. Continue using your ProAir inhaler 2 puffs every 4-6 hours as needed for wheezing or cough. Scripts Azithromycin (Azithromycin) 250 Mg Tablet 250 MG PO DAILY, #4 TAB 0 Refills Prov: BISMARK MERAZ MD 04/01/22 BISMARK MERAZ MD Apr 01, 2022 03:08
[2022-04-01] MEDS ORDERED: AZITHROMYCIN 250 MG TAB (ZITHROMAX) PO ONE (03:15)
[2022-04-01] MEDS ORDERED: FLUCONAZOLE 150 MG TABLET (ED ONLY) PO ONE (03:15)
[2022-04-01] MEDS ORDERED: AZIT250T12 PO (03:18)
== END 2022-04-01 03:23 | disposition home or self-care (01) ==
LOC: EDUNIT# 02:02 → ER 02:07
DX: J01.00 Acute maxillary sinusitis, unspecified (principal); J40 Bronchitis, not specified as acute or chronic; B37.3 Candidiasis of vulva and vagina; E11.65 Type 2 diabetes mellitus with hyperglycemia; F17.210 Nicotine dependence, cigarettes, uncomplicated; Z20.822 Contact with and (suspected) exposure to COVID-19
CPT/HCPCS: 82947; 87430; 87636

== ENCOUNTER 2022-12-13 20:48 | Emergency (ER) | payer MEDICAID ==
[~2022-12-13] VITALS: Ht 162.5 cm; Wt 116.0 kg
[~2022-12-13 20:48] MED LIST changes: +AMOX-355 PO; +LANC1COM6 MC; +LANC1KIT MC; +METF-478 PO; +[UNRECOGNIZED DRUG - CODE] MC; +[UNRECOGNIZED DRUG - CODE] MC
[2022-12-13] MEDS ORDERED: HYDROcodone/APAP 7.5 MG/325 MG (LORTAB, LORCET PLUS) TABLET PO STA (21:05)
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
[2022-12-13] MEDS ORDERED: ACHD5005 PO (21:44)
--- NOTE | 2022-12-13 21:52 | Diagnostic Imaging Report ---
EXAMINATION: Right ankle 3 views. HISTORY: Ankle injury. COMPARISON: 02/11/2014. 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 No acute fracture. No dislocation. Mortise is intact. There is a small heel spur. IMPRESSION: No fracture in the right ankle. Dictated by: Dictated on workstation # [id number]
[2022-12-13 21:55] VITALS: BP 137/74
== END 2022-12-13 21:57 | disposition home or self-care (01) ==
LOC: EDUNIT# 20:48 → ER 20:50
DX: S93.401A Sprain of unspecified ligament of right ankle, initial encounter (principal); E66.9 Obesity, unspecified; Z68.41 Body mass index [BMI] 40.0-44.9, adult; Z88.6 Allergy status to analgesic agent; V89.2XXA Person injured in unspecified motor-vehicle accident, traffic, initial encounter; Y92.488 Other paved roadways as the place of occurrence of the external cause
CPT/HCPCS: 73610; 99282; L4350

== ENCOUNTER 2023-01-16 12:10 | Emergency (ER) | payer MEDICAID ==
[~2023-01-16] VITALS: Ht 162 cm; Wt 117.0 kg
[2023-01-16] MEDS ORDERED: NS IV 1000 ML 1,000 ML IV STA ×3 (12:38→16:14)
[2023-01-16 12:50] LABS: BILIRUBIN,URINE NEGATIVE (NEGATIVE); CLARITY,URINE CLEAR; COLOR,URINE YELLOW; GLUCOSE, URINE (UA) 3+ (NEGATIVE); KETONES,URINE NEGATIVE (NEGATIVE); LEUKOCYTE ESTERASE ,URINE NEGATIVE (NEGATIVE); NITRITE,URINE NEGATIVE (NEGATIVE); PH,URINE 6.5 (5-9); PROTEIN,URINE NEGATIVE (NEGATIVE)
--- NOTE | 2023-01-16 12:54 | ED General ---
General Chief Complaint: Glucose Problems Stated Complaint: HIGH BLOOD SUGAR Nursing Triage Note: PT TO TRIAGE CO OF ELEVATED BS ABOVE 600. PT STATES IS ON OZEMPIC. PT STATES FEELS REALY BAD, PT STATES IS CURRENTLY ON PREDNISONE FOR COUGH AND STUFF IN LUNGS HAS BEEN TAKING FOR APPROX 01/11/23. Source of Information: Patient Exam Limitations: No Limitations History of Present Illness Date Seen by Provider: Jan 16, 2023 Time Seen by Provider: 12:49 Initial Comments Patient is a 42-year-old female with a history of type 2 diabetes who presents the ED for elevated blood sugar. She states over the past week she has not been feeling well. bodyaches, chills, cough with sputum production. Some intermittent shortness of breath with her cough. Patient states she was placed on prednisone about a week ago for the cough. Patient states she was placed on Ozempic Friday of this week 2.5 mg weekly for blood sugar. Patient has been on Trulicity in the past. Patient was recommended come to ED for further evaluation of her elevated blood sugar that read high on her glucometer. She states the coughing seems to be getting worse. Has been using her rescue inhaler a few times a day secondary to wheezing and shortness of breath. History of asthma. She denies of any specific chest pain, abdominal pain, vomiting or diarrhea. She states she feels nauseous. She states she has been urinating quite frequently. Patient denies headache, visual changes, abdominal pain, unilateral muscle weakness or sensory changes, dysuria, fever. Patient states her throat feels dry and start developing left ear pain this morning. Denies any hearing loss, ear ringing. Allergies and Home Medications Allergies Coded Allergies: Sulfa (Sulfonamide Antibiotics) (Unverified Allergy, Mild, 06/30/09) buspirone HCl (Verified Allergy, Unknown, 02/26/16) mirtazapine (Verified Allergy, Unknown, 02/26/16) naproxen (Verified Allergy, Unknown, 08/20/16) Patient Home Medication List Home Medication List Reviewed: Yes Amoxicillin/Potassium Clav (Augmentin 500-125 Tablet) 500 Mg-125 Mg Tablet, 1 EACH PO BID Prescribed by: SOREN LUCIANO on 04/23/22 1702 Azithromycin (Azithromycin) 250 Mg Tablet, 250 MG PO UD Prescribed by: KADEEM HAHN on 01/16/23 1834 Blood Glucose Control High,Low (Accu-Chek Guide L1-L2 Ctrl Adri) 1 Each Each, EACH [facility], (DME) Prescribed by: LEO LOUIS on 04/23/22 173 Blood-Glucose Meter (Accu-Chek Guide Me Glucose Mtr) 1 Each Each, EACH [facility], (DME) Prescribed by: LEO LOUIS on 04/23/22 173 Hydrocodone/Acetaminophen (Hydrocodone-Acetamin 5-325 mg) 5 Mg-325 Mg Tablet, 1 TAB PO Q4H PRN for PAIN-MODERATE (5-7) Prescribed by: KADEEM AHHN on 12/13/22 2144 Lancets/Blood Glucose Strips (Lancet 30G-Glucose Test Strip) 30 Gauge Combo..pkg, EACH [facility], (DME) Prescribed by: LEO LOUIS on 04/23/22 173 Lancing Device/Lancets (Accu-Chek Fastclix Lancet Kit) 1 Each Kit, EACH [facility], (DME ) Prescribed by: LEO LOUIS on 04/23/22 173 Metformin HCl (Metformin HCl ER) 500 Mg Tab.er.24, 500 MG PO BID Prescribed by: SOREN LUCIANO on 04/23/22 1702 Review of Systems Review of Systems Constitutional: No chills, No diaphoresis, No fever; malaise, weakness EENTM: No ear pain, No blurred vision, No double vision, No hoarseness, No mouth pain, No mouth swelling, No throat pain, No throat swelling Cardiovascular: No chest pain Gastrointestinal: No abdominal pain, No diarrhea; nausea; No vomiting Genitourinary: No decreased output, No discharge Musculoskeletal: No back pain, No joint pain Skin: No change in color, No change in hair/nails All Other Systems Reviewed Negative Unless Noted: Yes Past Uumaypk-Fxbgcm-Rdgypz Hx Patient Social History Tobacco Use?: Yes Tobacco type used: Cigarettes Smoking Status: Current Everyday Smoker Substance use?: No Alcohol Use?: No Pt feels they are or have been: No Immunizations Up To Date Tetanus Booster (TDap): Unknown Influenza Vaccine Up-to-Date: No; Not Current Seasonal Allergies Seasonal Allergies: Yes Past Medical History Surgery/Hospitalization HX: 01/23/2019 NECK SURGERY 08/2013--RA-TOTAL HYSTERECTOMY/BILATERAL SALPINGO-OOPHORECTOMY BY DR QUIROZ. 09/2016--COLONOSCOPY-NORMAL--BY DR. 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 History: Hysterectomy Sexually Transmitted Disease: No HIV/AIDS: No Genitourinary: Yes Bladder Infection Gastrointestinal: Yes (HX BLOOD IN STOOLS) Gastroesophageal Reflux Musculoskeletal: Yes ("UNDIFFERENTIATED CONNECTIVE TISSUE DISEASE" PER PT) Arthritis, Fibromyalgia, Rheumatoid Arthritis Endocrine: Yes (NON COMPLIANT; OBESITY) Diabetes, Non-Insulin dep HEENT: Yes Loss of Vision: Bilateral Hearing Impairment: Deaf Cancer: No Psychosocial: Yes Anxiety, PTSD, Bipolar, Depression Integumentary: No Blood Disorders: Yes (ANEMIA) Adverse Reaction/Blood Tranf: No (HAS HAD BLOOD WITH NO REACTION) Family Medical History Alcoholism 03 MOTHER Cancer 09 SISTER (Cervical or ovarian) Cancer of colon Congenital heart disease 03 FATHER Congestive heart failure 03 FATHER Family history: Allergy 03 MOTHER Family history: Arthritis Family history: Asthma 09 BROTHER Family history: Cardiovascular disease Family history: Diabetes mellitus 03 MOTHER Family history: Hypertension 03 MOTHER Family history: Thyroid disorder Heart disease History of - anemia 03 MOTHER History of drug abuse 03 FATHER 03 MOTHER Hypercholesterolemia 03 MOTHER Kidney disease Myocardial infarction Psychotic disorder Seizure disorder Stroke No Family History of: Abdominal aortic aneurysm Denhoff's disease Aphasia Cataract Chest pain Cystic fibrosis Dementia Dysphagia Family history: Alzheimer's disease Family history: Breast disease Family history: Coronary thrombosis Family history: Gastrointestinal disease Family history: Glaucoma Family history: Osteoporosis Headache Hearing loss Hereditary disease History of - respiratory disease Human immunodeficiency virus (HIV) seropositivity Infertile Malignant neoplasm of lung Parkinson's disease Prostate cancer Tuberculosis Visual impairment No Pertinent Family Hx Physical Exam Vital Signs Vital Signs - First Documented 01/16/23 12:25 Temp 36.3 Pulse 102 Resp 18 B/P (MAP) 145/93 (110) Pulse Ox 97 O2 Delivery Room Air Capillary Refill : Less Than 3 Seconds Height, Weight, BMI Height: 5'4.00" Weight: 280lbs. 0.0oz. [id number]; 44.00 BMI Method:Stated General Appearance: No Apparent Distress, WD/WN Eyes: Bilateral Eye Normal Inspection, Bilateral Eye PERRL, Bilateral Eye Abnormal EOM HEENT: PERRL/EOMI, TMs Normal, Normal ENT Inspection, Pharynx Normal Neck: Full Range of Motion, Normal Inspection, Non Tender, Supple Respiratory: Chest Non Tender, Lungs Clear, Normal Breath Sounds, No Accessory Muscle Use, No Respiratory Distress Cardiovascular: Regular Rate, Rhythm, No Edema, No Gallop, No JVD Gastrointestinal: Normal Bowel Sounds, No Organomegaly, No Pulsatile Mass, Non Tender Back: Normal Inspection, No CVA Tenderness, No Vertebral Tenderness Extremity: Normal Capillary Refill, Normal Inspection, Normal Range of Motion, Non Tender, No Calf Tenderness Neurologic/Psychiatric: Alert, Oriented x3, No Motor/Sensory Deficits, Normal 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, 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 Norm as Tested Skin: Normal Color, Warm/Dry Focused Exam Lactate Level 01/16/23 12:50: Lactic Acid Level 3.71*H 01/16/23 15:35: Lactic Acid Level 2.44*H 01/16/23 17:35: Lactic Acid Level 1.95 Lactic Acid Level Laboratory Tests Test 01/16/23 12:50 01/16/23 15:35 01/16/23 17:35 Lactic Acid Level 3.71 MMOL/L (0.50-2.00) *H 2.44 MMOL/L (0.50-2.00) *H 1.95 MMOL/L (0.50-2.00) Progress/Results/Core Measures Suspected Sepsis SIRS Temperature: Pulse: 102 Respiratory Rate: 18 Laboratory Tests 01/16/23 12:50: White Blood Count 13.6H Blood Pressure 145 /93 Mean: 110 01/16/23 12:50: Lactic Acid Level 3.71*H 01/16/23 15:35: Lactic Acid Level 2.44*H 01/16/23 17:35: Lactic Acid Level 1.95 Laboratory Tests 01/16/23 12:50: Creatinine 0.84, Platelet Count 277, Total Bilirubin 0.4 Results/Orders Lab Results Laboratory Tests Test 01/16/23 12:40 01/16/23 12:44 01/16/23 12:50 01/16/23 14:25 Range/Units Urine Color YELLOW Urine Clarity CLEAR Urine pH 6.5 5-9 Urine Specific [place] <=1.005 1.016-1.022 Urine Protein NEGATIVE NEGATIVE Urine Glucose (UA) 3+ H NEGATIVE Urine Ketones NEGATIVE NEGATIVE Urine Nitrite NEGATIVE NEGATIVE Urine Bilirubin NEGATIVE NEGATIVE Urine Urobilinogen 0.2 < = 1.0 MG/DL Urine Leukocyte Esterase NEGATIVE NEGATIVE Urine RBC (Auto) NEGATIVE NEGATIVE Urine RBC NONE /HPF Urine WBC NONE /HPF Urine Squamous Epithelial Cells 2-5 /HPF Urine Crystals NONE /LPF Urine Bacteria NEGATIVE /HPF Urine Casts NONE /LPF Urine Mucus NEGATIVE /LPF Urine Culture Indicated NO Urine Test NEGATIVE NEGATIVE Glucometer 536 *H 451 *H 70-110 MG/DL White Blood Count 13.6 H 4.3-11.0 10^3/uL Red Blood Count 5.62 H 3.80-5.11 10^6/uL Hemoglobin 15.8 11.5-16.0 g/dL Hematocrit 45 35-52 % Mean Corpuscular Volume 81 80-99 fL Mean Corpuscular Hemoglobin 28 25-34 pg Mean Corpuscular Hemoglobin Concent 35 32-36 g/dL Red Cell Distribution Width 12.7 10.0-14.5 % Platelet Count 277 130-400 10^3/uL Mean Platelet Volume 11.5 9.0-12.2 fL Immature Granulocyte % (Auto) 1 % Neutrophils (%) (Auto) 82 H 42-75 % Lymphocytes (%) (Auto) 14 12-44 % Monocytes (%) (Auto) 2 0-12 % Eosinophils (%) (Auto) 0 0-10 % Basophils (%) (Auto) 0 0-10 % Neutrophils # (Auto) 11.2 H 1.8-7.8 10^3/uL Lymphocytes # (Auto) 2.0 1.0-4.0 10^3/uL Monocytes # (Auto) 0.3 0.0-1.0 10^3/uL Eosinophils # (Auto) 0.0 0.0-0.3 10^3/uL Basophils # (Auto) 0.1 0.0-0.1 10^3/uL Immature Granulocyte # (Auto) 0.1 0.0-0.1 10^3/uL Sodium Level 134 L 135-145 MMOL/L Potassium Level 4.4 3.6-5.0 MMOL/L Chloride Level 98 98-107 MMOL/L Carbon Dioxide Level 22 21-32 MMOL/L Anion Gap 14 5-14 MMOL/L Blood Urea Nitrogen 10 7-18 MG/DL Creatinine 0.84 0.60-1.30 MG/DL Estimat Glomerular Filtration Rate 90 BUN/Creatinine Ratio 12 Glucose Level 567 *H 70-105 MG/DL Lactic Acid Level 3.71 *H 0.50-2.00 MMOL/L Calcium Level 9.2 8.5-10.1 MG/DL Corrected Calcium 9.2 8.5-10.1 MG/DL Total Bilirubin 0.4 0.1-1.0 MG/DL Aspartate Amino Transf (AST/SGOT) 8 5-34 U/L Alanine Aminotransferase (ALT/SGPT) 18 0-55 U/L Alkaline Phosphatase 135 40-136 U/L Total Protein 7.5 6.4-8.2 GM/DL Albumin 4.0 3.2-4.5 GM/DL Beta-Hydroxybutyrate (Chem panel) 0.11 0.00-0.27 MMOL/L Test 01/16/23 15:35 01/16/23 15:37 01/16/23 16:37 01/16/23 17:33 Range/Units Lactic Acid Level 2.44 *H 0.50-2.00 MMOL/L Glucometer 369 H 340 H 283 H 70-110 MG/DL Test 01/16/23 17:35 Range/Units Lactic Acid Level 1.95 0.50-2.00 MMOL/L My Orders Orders - KIMBERLEE BECKETT PA Beta Hydroxybutyrate (01/16/23 12:38) Cbc With Automated Diff (01/16/23 12:38) Comprehensive Metabolic Panel (01/16/23 12:38) Accucheck Stat ONCE (01/16/23 12:38) Ua Culture If Indicated (01/16/23 12:38) Hcg,Qualitative Urine (01/16/23 12:38) Lactic Acid Analyzer (01/16/23 12:38) Ns Iv 1000 Ml (Sodium Chloride 0.9%) (01/16/23 12:38) Chest 1 View, Ap/Pa Only (01/16/23 12:47) Albuterol Pre-Mix Nebs (Rt) (Proventil (01/16/23 13:00) Svn Small Volume Nebulizer (01/16/23 12:47) Ns Iv 1000 Ml (Sodium Chloride 0.9%) (01/16/23 13:25) Insulin (Regular) Human (Novolin R (Per (01/16/23 13:45) Insulin (Regular) Human (Novolin R (Per (01/16/23 13:48) Accucheck Stat ONCE (01/16/23 15:27) Insulin (Regular) Human (Novolin R (Per (01/16/23 15:45) Ns Iv 1000 Ml (Sodium Chloride 0.9%) (01/16/23 16:14) Lactic Acid Analyzer (01/16/23 17:28) Medications Given in ED Current Medications Medications Dose Ordered Sig/Germania Route Start Time Stop Time Status Last Admin Dose Admin Albuterol Sulfate 2.5 mg ONCE ONCE INH 01/16/23 13:00 01/16/23 13:01 DC 01/16/23 12:59 2.5 MG Insulin Human Regular 10 unit ONCE ONCE SC 01/16/23 13:45 01/16/23 13:46 DC 01/16/23 13:49 10 UNIT Insulin Human Regular 10 unit ONCE ONCE SC 01/16/23 15:45 01/16/23 15:46 DC 01/16/23 15:48 10 UNIT Vital Signs/I&O 01/16/23 01/16/23 12:25 13:05 Temp 36.3 Pulse 102 Resp 18 B/P (MAP) 145/93 (110) Pulse Ox 97 O2 Delivery Room Air Room Air Capillary Refill : Less Than 3 Seconds Blood Pressure Mean: 110 Point of Care Testing Finger Stick Blood Glucose: 536 Blood Glucose Action Taken: Dr and RN notified Departure Communication (PCP) Patient with upper respiratory symptoms of congestion, cough, shortness of april th. History of asthma allergies. Has been using albuterol inhaler more frequently without much improvement. She reports Mucinex without much improvement. Patient vital signs stable. Does not appear in respiratory distress. States she was placed on predisone one week ago. She has 1 days left. She states her blood sugar was running high over 600 at home and she was not feeling well. due to her current complaints CBC, CMP, beta hydroxybutyrate, urinalysis, chest x-ray was ordered. She has no specific chest pain or abdominal pain. She had negative COVID and influenza 1 week ago. Patient did not have any wheezing noted on exam. She did have decrease lower breath sounds. She was given albuterol treatment with some improvement. CBC showed white blood count 13 which could be associated from the prednisone or infection. Blood sugar 567. Negative hydroxybutyrate. Normal anion gap. No ketones in urine. Does not appear in DKA. She is type II diabetic. Hyperosmolar hyperglycemia. Lactic acid of 3.77 was started on 2 L of fluid here in the ED. Patient was given 10 units of regular insulin subcu. Improvement of her blood sugar of 369. Lactic acid improved to 2.44. She was given a third liter of fluid and a second dose of 10 units of regular insulin. Improvement of blood sugar to 289. Improvement of lactic acid below 2. Chest x-ray was negative for pneumonia. Suspect upper respiratory faction versus viral versus atypical infection versus reactive airway. Will hold the prednisone. She does have a rescue inhaler. Will discharge with azithromycin Z-Luis Carlos for atypical infection and continue cough. Continue monitoring blood sugar at home. recommend hydration. Follow-up your PCP in 2 to 3 days for reevaluation of blood sugar. Impression Primary Impression: Hyperglycemia Additional Impression: Upper respiratory infection Disposition: HOME, SELF-CARE Condition: Stable Departure-Patient Inst. Decision time for Depature: 18:03 Referrals: SOREN LUCIANO MD (PCP/Family) Primary Care Physician Patient Instructions: Upper Respiratory Infection ED Scripts Azithromycin (Azithromycin) 250 Mg Tablet 250 MG PO UD, #6 TAB TAKE 2 TABLETS ON DAY ONE THEN TAKE 1 TABLET DAILY FOR FOUR MORE DAYS Prov: KIMBERLEE BECKETT 01/16/23 Work/School Note: Work Release Form Date Seen in the Emergency Department: Jan 16, 2023 Return to Work: Jan 18, 2023 KIMBERLEE BECKETT Jan 16, 2023 12:54
[2023-01-16 13:00] LABS: BACTERIA,URINE NEGATIVE /HPF
[2023-01-16] MEDS ORDERED: RT-ALBUTEROL SULF 2.5 MG/3 ML PRE-MIX VIAL INH ONE (13:00)
[2023-01-16 13:06] LABS: BASOPHILS # (AUTO) 0.1 10^3/uL (0.0-0.1); BASOPHILS % (AUTO) 0 % (0-10); EOSINOPHILS % (AUTO) 0 % (0-10); HEMATOCRIT 45 % (35-52); HEMOGLOBIN 15.8 g/dL (11.5-16.0); LYMPHOCYTES % (AUTO) 14 % (12-44); MEAN CORPUSCULAR HEMOGLOBIN 28 pg (25-34); MEAN CORPUSCULAR HGB CONC 35 g/dL (32-36); MEAN CORPUSCULAR VOLUME 81 fL (80-99); MEAN PLATELET VOLUME 11.5 fL (9.0-12.2); MONOCYTES # (AUTO) 0.3 10^3/uL (0.0-1.0); MONOCYTES % (AUTO) 2 % (0-12); NEUTROPHILS # (AUTO) 11.2 10^3/uL (1.8-7.8); NEUTROPHILS % (AUTO) 82 % (42-75); PLATELET COUNT 277 10^3/uL (130-400); WHITE BLOOD COUNT 13.6 10^3/uL (4.3-11.0)
[2023-01-16 13:24] LABS: POTASSIUM 4.4 MMOL/L (3.6-5.0)
--- NOTE | 2023-01-16 13:24 | Diagnostic Imaging Report ---
INDICATION: Cough. Frontal chest obtained at 01:07 p.m. Heart and mediastinal silhouette are normal in appearance. The lungs are clear. There is no pneumothorax or pleural fluid. IMPRESSION: Negative chest. Dictated by: Dictated on workstation # [id number]
[2023-01-16 13:26] LABS: CALCIUM 9.2 MG/DL (8.5-10.1)
[2023-01-16 13:27] LABS: TOTAL PROTEIN 7.5 GM/DL (6.4-8.2)
[2023-01-16 13:29] LABS: BILIRUBIN,TOTAL 0.4 MG/DL (0.1-1.0)
[2023-01-16 13:30] LABS: CREATININE SERUM 0.84 MG/DL (0.60-1.30)
[2023-01-16] MEDS ORDERED: inSUlin (REGULAR) HUMAN 1 UNIT/0.01 ML (CHARGE PER UNIT) SC ONE ×2 (13:45→15:45)
[2023-01-16] MEDS ORDERED: inSUlin (REGULAR) HUMAN 1 UNIT/0.01 ML (CHARGE PER UNIT) ONE (13:48)
[2023-01-16 18:17] VITALS: BP 145/93
[2023-01-16] MEDS ORDERED: AZIT250T12 PO (18:34)
== END 2023-01-16 18:17 | disposition home or self-care (01) ==
LOC: EDUNIT# 12:10 → ER 12:13
DX: E11.65 Type 2 diabetes mellitus with hyperglycemia (principal); J06.9 Acute upper respiratory infection, unspecified; J45.909 Unspecified asthma, uncomplicated; E66.9 Obesity, unspecified; F17.210 Nicotine dependence, cigarettes, uncomplicated; Z79.84 Long term (current) use of oral hypoglycemic drugs; Z88.1 Allergy status to other antibiotic agents; Z68.41 Body mass index [BMI] 40.0-44.9, adult; Z79.51 Long term (current) use of inhaled steroids
CPT/HCPCS: 36415; 71045; 80053; 81000; 82010; 82947; 83605; 84703; 85025